=== PATIENT | female | born 1960 | race Caucasian/White ===

== ENCOUNTER 2020-01-20 15:55 | Outpatient (REF) | payer BC, SELFPAY ==
--- NOTE | 2020-01-20 | MM_ITS ---
EXAMINATION: MM SCREENING DIGITAL BREAST TOMOSYNTHESIS, BILATERAL CLINICAL INFORMATION: Screening. Asymptomatic. The lifetime risk of breast cancer based on the Tyrer-Cuzick Model is 9%. COMPARISON: Mammography: 06/26/2017, 06/02/2015 TECHNIQUE: Digital breast tomosynthesis is performed in both the craniocaudal and mediolateral oblique views along with computer-aided detection (CAD). Synthesized 2D images are generated from the tomosynthesis. FINDINGS: There are scattered areas of fibroglandular density (ACR BI-RADS breast composition Category b). There are no significant masses, abnormal calcifications, or other abnormalities. The axilla and skin contours are unremarkable. IMPRESSION: No mammographic evidence of malignancy. ASSESSMENT: BI-RADS 1: Negative RECOMMENDATION: Routine annual mammography screening. This patient's information was entered into a reminder system with a target due date for their next mammogram.
== END 2020-01-20 15:56 | disposition home or self-care (01) ==
LOC: HO.MAMMO 15:55
PROVIDERS: Visit Provider Internal Medicine
DX: Z12.31 Encounter for screening mammogram for malignant neoplasm of breast (principal)
CPT/HCPCS: 77063; 77067

== ENCOUNTER 2020-02-03 16:52 | Outpatient (REF) | payer BC, SELFPAY ==
[2020-02-03 17:57] LABS: COVID-19 Test Negative (Negative)
== END 2020-02-03 16:53 | disposition home or self-care (01) ==
LOC: HO.LAB 16:52
PROVIDERS: Visit Provider Internal Medicine
DX: Z20.828 Contact with and (suspected) exposure to other viral communicable diseases (principal)
CPT/HCPCS: 87635

== ENCOUNTER 2020-02-11 09:17 | Outpatient (REF) | payer BC, SELFPAY | END 2020-02-11 09:18 | disposition home or self-care (01) | LOC: HO.MDS 09:17 | PROVIDERS: PCP Internal Medicine; Visit Provider Hospitalist | DX: J45.909 Unspecified asthma, uncomplicated (principal) | CPT/HCPCS: 96372; J0517 ==

== ENCOUNTER 2020-03-17 08:13 | Outpatient (REF) | payer BC, SELFPAY | END 2020-03-17 08:14 | disposition home or self-care (01) | LOC: HO.LAB 08:13 | PROVIDERS: Visit Provider Internal Medicine | DX: Z20.828 Contact with and (suspected) exposure to other viral communicable diseases (principal) | CPT/HCPCS: C9803; U0003 ==

== ENCOUNTER 2020-04-07 08:39 | Outpatient (REF) | payer BC, SELFPAY | END 2020-04-07 08:40 | disposition home or self-care (01) | LOC: HO.MDS 08:39 | PROVIDERS: Visit Provider Hospitalist | DX: J45.40 Moderate persistent asthma, uncomplicated (principal) | CPT/HCPCS: 96372; J0517 ==

== ENCOUNTER 2020-06-05 09:47 | Outpatient (REF) | payer BC, SELFPAY | END 2020-06-05 09:48 | disposition home or self-care (01) | LOC: HO.MDS 09:47 | PROVIDERS: Visit Provider Hospitalist | DX: J45.50 Severe persistent asthma, uncomplicated (principal) | CPT/HCPCS: 96372; J0517 ==

== ENCOUNTER → 2020-06-16 09:18 | Outpatient (BNVA) | payer BC, SELFPAY | PROVIDERS: PCP Internal Medicine; Visit Provider Hospitalist ==

== ENCOUNTER 2020-07-27 10:33 | Outpatient (REF) | payer BC, SELFPAY | END 2020-07-27 10:34 | disposition home or self-care (01) | LOC: HO.MDS 10:33 | PROVIDERS: Visit Provider Hospitalist | DX: J45.40 Moderate persistent asthma, uncomplicated (principal) | CPT/HCPCS: 96372; J0517 ==

== ENCOUNTER 2020-09-21 07:38 | Outpatient (REF) | payer BC, SELFPAY | END 2020-09-21 07:39 | disposition home or self-care (01) | LOC: HO.MDS 07:38 | PROVIDERS: Visit Provider Hospitalist | DX: J45.40 Moderate persistent asthma, uncomplicated (principal) | CPT/HCPCS: 96372; J0517 ==

== ENCOUNTER 2020-11-16 15:20 | Outpatient (REF) | payer BC, SELFPAY | END 2020-11-16 15:21 | disposition home or self-care (01) | LOC: HO.MDS 15:20 | PROVIDERS: Visit Provider Hospitalist | DX: J45.40 Moderate persistent asthma, uncomplicated (principal) | CPT/HCPCS: 96372; J0517 ==

== ENCOUNTER 2021-01-15 08:37 | Outpatient (REF) | payer BC, SELFPAY | END 2021-01-15 08:38 | disposition home or self-care (01) | LOC: HO.MDS 08:37 | PROVIDERS: Visit Provider Hospitalist | DX: J45.40 Moderate persistent asthma, uncomplicated (principal) | CPT/HCPCS: 96372; J0517 ==

== ENCOUNTER 2021-03-03 09:20 | Emergency (ER) | payer BC, SELFPAY ==
--- NOTE | ~2021-03-03 | XR_ITS ---
EXAMINATION: XR CHEST CLINICAL INFORMATION: Chest pain COMPARISON: Chest radiographs 03/07/2019, 09/21/2015 TECHNIQUE: Portable upright AP view of the chest was obtained. FINDINGS: There is no pneumothorax, pleural reaction, infiltrate, or effusion. The heart is normal in size. The vascularity is normal. The hilar and mediastinal contours are unremarkable. No visible acute bony abnormality. XR/XR chest 1V IMPRESSION: Unremarkable examination.
--- NOTE | 2021-03-03 09:27 | ECG_ITS ---
Test Reason : CP Blood Pressure : / mmHG Vent. Rate : 056 BPM Atrial Rate : 056 BPM P-R Int : 164 ms QRS Dur : 074 ms QT Int : 414 ms P-R-T Axes : 001 041 030 degrees QTc Int : 399 ms Sinus bradycardia Nonspecific ST abnormality Abnormal ECG When compared with ECG of 02-MAR-2015 11:46, Vent. rate has decreased BY 49 BPM T wave inversion no longer evident in Inferior leads T wave inversion no longer evident in Anterolateral leads QT has shortened Referred By: Generic ED Physician Electronically Signed By:HARRIET METZGER
[2021-03-03 09:35] VITALS: BP 153/98; PULSE 49; RESP 18; TEMP 36.6; O2SAT 100; BMI 25.8
[2021-03-03 09:57] LABS: Hematocrit 39.4 % (37.0-47.0); Mean Corpuscular Hemoglobin 31.6 pg (27.0-33.0); Mean Corpuscular Volume 95.9 fL (80.0-98.0); Mean Platelet Volume 10.6 fL (9.4-12.3); Platelet Count 208 X10*3/uL (160-400); Red Blood Count 4.11 X10*6/uL (4.20-5.50); Red Cell Distribution Width 12.1 % (11.0-16.0)
--- NOTE | 2021-03-03 09:57 | ED_ITS ---
HPI - Chest Pain General Chief Complaint: Chest Pain Stated Complaint: chest pain Time Seen by Provider: 03/03/21 09:57 Source: patient Mode of arrival: ambulatory Limitations: no limitations History of Present Illness HPI narrative: Patient with chest pain for 3 days and this morning woke up with right arm pain and jaw pain. Patient is under a lot of stress. Patient has significant family history. Patient has high cholesterol. MD complaint: chest pain Onset (ago): day(s) Timing of current episode: constant Onset: during rest and during exertion Pain location: substernal Pain radiation: right arm and jaw/teeth Severity: mild Quality: tightness Treatment prior to arrival: none Related Data Home Medications Medication Instructions Recorded Confirmed budesonide-formoterol HFA 160 INHALATION 02/24/20 06/16/20 mcg-4.5 mcg/actuation aerosol inhaler Previous Rx's Medication Instructions Recorded montelukast 10 mg tablet 10 mg PO BEDTIME #30 tab 11/30/20 albuterol sulfate 90 mcg/actuation 2 puff PO Q6H PRN #18 g 01/04/21 aerosol inhaler Allergies Allergy/AdvReac Type Severity Reaction Status Date / Time azithromycin Allergy Unknown vomiting Verified 06/16/20 09:45 erythromycin base Allergy Unknown NAUSEA & Verified 06/16/20 09:45 [ERYTHROMYCIN BASE] VOMITING Review of Systems Constitutional: Constitutional: Reports no additional constitutional complaints Eyes: Eyes: Reports no additional eye complaints ENT: Denies dizziness Cardiovascular: Cardiovascular: Reports no additional cardiovascular complaints Respiratory: Respiratory: Reports as per HPI Gastrointestinal: Gastrointestinal: Reports no additional gastrointestinal complaints Genitourinary: Genitourinary: Reports no additional female genitourinary complaints Musculoskeletal: Musculoskeletal: Reports no additional musculoskeletal complaints Integumentary/Breasts: Skin/Breast: Denies rash Neurologic: Reports system reviewed and no additional complaints, except as documented, Denies dizziness and Denies Sensory deficit (Neuro) Psychiatric: Psychiatric: Denies anxiety PMFSH Past Medical History Medical History Allergic rhinitis Arthritis Asthma Employee exposure to blood Hyperlipidemia Surgical History H/O colonoscopy History of appendectomy Family History Family History Father HTN (hypertension) CVD (cardiovascular disease) Mother Heart disease Kidney disease Paternal Grandmother Colon cancer Brother No problems noted. Brother No problems noted. Brother No problems noted. Sister No problems noted. Sister No problems noted. Daughter No problems noted. 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 Alcohol intake: current Alcohol intake frequency: holidays/special occasions only Alcohol type: beer and wine Patient Tobacco Use Status: Tobacco use Unknown Years Smoked: 10 years Use of substances other than those prescribed or required for medical reasons: No Advance Directives: No Advance Directives Information Provided: No Patient : No Physical Exam Vital Signs: Vital Signs: Last Vital Signs Temp 98 F 03/03/21 09:35 Pulse 66 03/03/21 12:46 Resp 15 03/03/21 12:46 BP 144/87 H 03/03/21 12:46 Pulse Ox 97 03/03/21 12:46 BMI result Body Mass Index 25.8 Const: General: healthy appearing Nutritional Appearance: average body habitus Orientation/consciousness: oriented to person and patient oriented x3 Limitations: no limitations HENMT: Head: Yes normal to inspection Ears: external ears normal General nose exam: Normal external nose present Mouth: Normal oral and palatal mucosa present and oropharynx normal Throat: Yes posterior oropharynx normal Eyes: General: appearance normal, both eyes and all related structures Neck: Other: supple Neck: Yes normal visual inspection Chest: Chest palpation & inspection: normal inspection of the chest Resp: Auscultation: clear to auscultation bilaterally Cardio: Jugular venous distension: no JVD Rate: regular rate Rhythm: regular rhythm Heart sounds: S1 normal heart sound present and S2 normal heart sound present GI: Inspection: Yes normal to inspection Palpation (GI): Soft to palpation, nontender and No hepatosplenomegaly present Auscultation: normal bowel sounds : General: Yes no CVA tenderness Back/Spine/Pelvis: Back: no CVA tenderness Skin: General skin exam: no rashes or lesions noted Neuro: General: oriented to person and patient oriented x3 Cranial nerves: Yes CN's II-XII intact bilaterally Motor exam (neuro): 5/5 motor strength present throughout Sensory Exam: No Sensory deficit (Neuro) Extrem: General: Yes normal to inspection Psych: Appearance: grossly normal Course Reevaluation(s) Reevaluation #1: will repeat troponin now Time: 12:20 Reevaluation #2: troponin #2 negative will dc home Time: 13:59 MDM - Chest Pain Lab Data Result diagrams: 03/03/21 10:20 03/03/21 09:49 Labs: Lab Results 03/03/21 03/03/21 03/03/21 Range/Units 09:49 09:49 09:49 WBC 6.0 (4.8-10.8) X10*3/uL RBC 4.11 L (4.20-5.50) X10*6/uL Hgb 13.0 (12.0-16.0) g/dl Hct 39.4 (37.0-47.0) % MCV 95.9 (80.0-98.0) fL MCH 31.6 (27.0-33.0) pg MCHC 33.0 (31.0-35.0) g/dl RDW 12.1 (11.0-16.0) % Plt Count 208 (160-400) X10*3/uL MPV 10.6 (9.4-12.3) fL Immature Gran % (Auto) (0.0-0.4) % Neut % (Auto) (45-73) % Lymph % (Auto) (20-40) % Graham % (Auto) (2-11) % Eos % (Auto) (0-4) % Baso % (Auto) (0-2) % Lymph # (Auto) (1.2-4.9) X10*3/uL Graham # (Auto) (0.1-1.2) X10*3/uL Eos # (Auto) (0.0-0.4) X10*3/uL Baso # (Auto) (0.0-0.2) X10*3/uL Abs Immat Gran (auto) (0.00-0.03) X10*3/uL Absolute Neuts (auto) (2.0-8.3) x10*3/uL Absolute Nucleated RBC 0.000 (0.0-0.012) X10*3/uL Nucleated RBC % (auto) 0.0 (0.0-0.2) /100WBC Sodium 140 (135-145) mmol/L Potassium 4.3 (3.3-5.1) mmol/L Chloride 109 H (96-108) mmol/L Carbon Dioxide 26 (22-29) mmol/L Anion Gap 9 L (12-20) BUN 8 L (9-16) mg/dL Creatinine 0.82 (0.5-1.4) mg/dL Estim Creat Clear Calc 79.0 Estimated GFR > 60 Random Glucose 97 (60-115) mg/dL Calcium 9.4 (8.4-10.2) mg/dL Troponin I High Sens 4.5 (<3.5-17.0) ng/L 03/03/21 03/03/21 Range/Units 10:20 12:47 WBC 6.3 (4.8-10.8) X10*3/uL RBC 4.21 (4.20-5.50) X10*6/uL Hgb 13.3 (12.0-16.0) g/dl Hct 40.5 (37.0-47.0) % MCV 96.2 (80.0-98.0) fL MCH 31.6 (27.0-33.0) pg MCHC 32.8 (31.0-35.0) g/dl RDW 12.1 (11.0-16.0) % Plt Count 201 (160-400) X10*3/uL MPV 10.8 (9.4-12.3) fL Immature Gran % (Auto) 0.3 (0.0-0.4) % Neut % (Auto) 55.0 (45-73) % Lymph % (Auto) 34.4 (20-40) % Graham % (Auto) 10.1 (2-11) % Eos % (Auto) 0.0 (0-4) % Baso % (Auto) 0.2 (0-2) % Lymph # (Auto) 2.2 (1.2-4.9) X10*3/uL Graham # (Auto) 0.6 (0.1-1.2) X10*3/uL Eos # (Auto) 0.0 (0.0-0.4) X10*3/uL Baso # (Auto) 0.0 (0.0-0.2) X10*3/uL Abs Immat Gran (auto) 0.02 (0.00-0.03) X10*3/uL Absolute Neuts (auto) 3.4 (2.0-8.3) x10*3/uL Absolute Nucleated RBC 0.000 (0.0-0.012) X10*3/uL Nucleated RBC % (auto) 0.0 (0.0-0.2) /100WBC Sodium (135-145) mmol/L Potassium (3.3-5.1) mmol/L Chloride (96-108) mmol/L Carbon Dioxide (22-29) mmol/L Anion Gap (12-20) BUN (9-16) mg/dL Creatinine (0.5-1.4) mg/dL Estim Creat Clear Calc Estimated GFR Random Glucose (60-115) mg/dL Calcium (8.4-10.2) mg/dL Troponin I High Sens < 3.5 (<3.5-17.0) ng/L Imaging Data Chest x-ray: Radiologist's impression: FINDINGS: There is no pneumothorax, pleural reaction, infiltrate, or effusion. The heart is normal in size. The vascularity is normal. The hilar and mediastinal contours are unremarkable. No visible acute bony abnormality. XR/XR chest 1V IMPRESSION: Unremarkable examination. ? ECG Data ECG #1: Attestation: I personally reviewed and interpreted this ECG as follows: Interpretation: sinus 60, nonspecific st twave changes inferior laterally Discharge Plan Discharge Clinical Impression: Chest pain Qualifiers: Chest pain type: unspecified Qualified Code(s): R07.9 - Chest pain, unspecified Patient Disposition: Home, Self-Care Instructions: Noncardiac Chest Pain (ED) Prescriptions: No Action montelukast 10 mg tablet 10 mg PO BEDTIME Qty: 30 RF: 3 albuterol sulfate 90 mcg/actuation HFA aerosol inhaler 2 puff PO Q6H PRN (Reason: shortness of breath or wheezing) Qty: 18 RF: 3 budesonide-formoterol 160-4.5 mcg/actuation HFA aerosol inhaler inhalation RF: 0 Referrals: Dorys Noguera MD [Primary Care Provider] - 5 days
[2021-03-03 10:16] VITALS: BP 151/80; PULSE 57; RESP 15; O2SAT 99
[2021-03-03 10:17] LABS: Troponin-I High Sensitivity 4.5 ng/L (<3.5-17.0)
[2021-03-03 10:20] LABS: Anion Gap 9 (12-20); Blood Urea Nitrogen 8 mg/dL (9-16); Calcium 9.4 mg/dL (8.4-10.2); Carbon Dioxide 26 mmol/L (22-29); Chloride 109 mmol/L (96-108); Estimated Glomerular Filt Rate > 60; Glucose Random 97 mg/dL (60-115); Potassium 4.3 mmol/L (3.3-5.1); Sodium 140 mmol/L (135-145)
[2021-03-03 10:23] LABS: MANUAL DIFF FLAG NO
[2021-03-03] MEDS: Nitroglycerin 2 % Oint 1 GM Packet 1 INCH TRANSDERMA (10:23)
[2021-03-03] MEDS: Aspirin Enteric Coated 81 MG TABLET.DR 162 MG PO (10:23)
[2021-03-03 10:25] LABS: Basophils Percent Auto 0.2 % (0-2); Hematocrit 40.5 % (37.0-47.0); Hemoglobin 13.3 g/dl (12.0-16.0); Imm Gran Abs Auto 0.02 X10*3/uL (0.00-0.03); Imm Gran Pct Auto 0.3 % (0.0-0.4); Lymphocytes Absolute Auto 2.2 X10*3/uL (1.2-4.9); Lymphocytes Percent Auto 34.4 % (20-40); Mean Corpuscular HGB Conc 32.8 g/dl (31.0-35.0); Mean Corpuscular Hemoglobin 31.6 pg (27.0-33.0); Mean Corpuscular Volume 96.2 fL (80.0-98.0); Mean Platelet Volume 10.8 fL (9.4-12.3); Monocytes Absolute Auto 0.6 X10*3/uL (0.1-1.2); Monocytes Percent Auto 10.1 % (2-11); Neutrophils Absolute Auto 3.4 x10*3/uL (2.0-8.3); Platelet Count 201 X10*3/uL (160-400); Red Blood Count 4.21 X10*6/uL (4.20-5.50); Red Cell Distribution Width 12.1 % (11.0-16.0); White Blood Count 6.3 X10*3/uL (4.8-10.8)
[2021-03-03 11:01] VITALS: BP 156/87; PULSE 56; RESP 14; O2SAT 98
[2021-03-03 11:43] VITALS: BP 143/87; PULSE 57; RESP 14; O2SAT 95
[2021-03-03 12:46] VITALS: BP 144/87; PULSE 66; RESP 15; O2SAT 97
[2021-03-03] MEDS: Acetaminophen 325 MG TABLET 650 MG PO (12:54)
[2021-03-03 13:29] LABS: Troponin-I High Sensitivity < 3.5 ng/L (<3.5-17.0)
== END 2021-03-03 14:07 | disposition home or self-care (01) ==
PROVIDERS: Emergency Provider Emergency Medicine; PCP Internal Medicine
DX: R07.9 Chest pain, unspecified (principal); M79.601 Pain in right arm; Z79.899 Other long term (current) drug therapy
CPT/HCPCS: 36415; 71045; 80048; 84484; 85025; 85027; 93005; 99284; 99285

== ENCOUNTER 2021-03-15 08:30 | Outpatient (REF) | payer BC, SELFPAY | END 2021-03-15 08:31 | disposition home or self-care (01) | LOC: HO.MDS 08:30 | PROVIDERS: Visit Provider Hospitalist | DX: J45.40 Moderate persistent asthma, uncomplicated (principal) | CPT/HCPCS: 96372; J0517 ==

== ENCOUNTER 2021-05-14 07:41 | Outpatient (REF) | payer BC, SELFPAY | END 2021-05-14 07:42 | disposition home or self-care (01) | LOC: HO.MDS 07:41 | PROVIDERS: Visit Provider Hospitalist | DX: J45.40 Moderate persistent asthma, uncomplicated (principal) | CPT/HCPCS: 96372; J0517 ==

== ENCOUNTER 2021-06-15 07:59 | Outpatient (REF) | payer BC, SELFPAY ==
--- NOTE | 2021-06-15 10:24 | PFT_ITS ---
INDICATION: Asthma. SPIROMETRY: FEV1 to FVC of 77% with an FEV1 of 2.81 L, which is 100% predicted, and FVC of 3.63 L, which is 101% predicted. Post bronchodilators, the patient did have a significant response to bronchodilators noted. In addition to that the FEF 25/75 decreased to 58% predicted consistent with small airways disease and her diagnosis of severe persistent asthma. Maximum voluntary ventilation with 81% predicted. LUNG VOLUMES: Total lung capacity 106% predicted and residual volume 102% predicted. DIFFUSION CAPACITY: DLCO 69% predicted. COMPARISONS: PFTs from 2019. INTERPRETATION: No obstructive nor restrictive ventilatory defects identified. The patient did have a significant response to bronchodilators noted and also evidence of small airway disease consistent with history of hyperreactive airways and asthma. Lung volumes are within normal limits. The patient does have a mild diffusion impairment, therefore need to consider corrected for hemoglobin. When compared to 2019, there is a trend increase in her FVC, trend increase in her FEV1, a trend decrease in the total lung capacity, and a significant decrease in the residual volume in addition to a significant decrease in the diffusion capacity. Clinical correlation warranted. Shar Ma MD MR/MODL / [id number]
== END 2021-06-15 08:00 | disposition home or self-care (01) ==
LOC: HO.RESP 07:59
PROVIDERS: PCP Internal Medicine; Visit Provider Hospitalist
DX: J45.40 Moderate persistent asthma, uncomplicated (principal)
CPT/HCPCS: 94060; 94727; 94729

== ENCOUNTER → 2021-06-23 08:37 | Outpatient (BNVA) | payer BC, SELFPAY | PROVIDERS: PCP Internal Medicine; Visit Provider Hospitalist | DX: J45.40 Moderate persistent asthma, uncomplicated (principal); J30.9 Allergic rhinitis, unspecified; U09.9 Post COVID-19 condition, unspecified; Z87.891 Personal history of nicotine dependence; Z79.899 Other long term (current) drug therapy | CPT/HCPCS: 99212 ==

== ENCOUNTER 2022-02-16 07:26 | Outpatient (REF) | payer BC, SELFPAY ==
--- NOTE | ~2022-02-16 | MM_ITS ---
EXAMINATION: MM SCREENING DIGITAL BREAST TOMOSYNTHESIS, BILATERAL CLINICAL INFORMATION: Screening. Asymptomatic. The lifetime risk of breast cancer based on the Tyrer-Cuzick Model is 9%. COMPARISON: Mammography: 01/20/2020, 06/26/2017, 06/02/2015 TECHNIQUE: Digital breast tomosynthesis is performed in both the craniocaudal and mediolateral oblique views along with computer-aided detection (CAD). Synthesized 2D images are generated from the tomosynthesis. FINDINGS: There are scattered areas of fibroglandular density (ACR BI-RADS breast composition Category b). There are no significant masses, abnormal calcifications, or other abnormalities. Incidental small low right axillary tail node on the right MLO view. The axilla are unremarkable. The skin contours are smooth. There are no significant changes. MM/MM tomosynthesis screening BI IMPRESSION: No mammographic evidence of malignancy. ASSESSMENT: BI-RADS 2: Benign RECOMMENDATION: Routine annual mammography screening. This patient's information was entered into a reminder system with a target due date for their next mammogram.
== END 2022-02-16 07:27 | disposition home or self-care (01) ==
LOC: HO.MAMMO 07:26
PROVIDERS: Visit Provider Internal Medicine
DX: Z12.31 Encounter for screening mammogram for malignant neoplasm of breast (principal)
CPT/HCPCS: 77063; 77067

== ENCOUNTER → 2022-06-21 14:36 | Outpatient (BNVA) | payer BC, SELFPAY | PROVIDERS: PCP Internal Medicine; Visit Provider Hospitalist | DX: Z13.89 Encounter for screening for other disorder (principal) ==

== ENCOUNTER → 2022-07-14 15:08 | Outpatient (REF) | payer BC, SELFPAY | LOC: HO.SL 15:08 | PROVIDERS: PCP Internal Medicine; Visit Provider Hospitalist | DX: G47.33 Obstructive sleep apnea (adult) (pediatric) (principal) | CPT/HCPCS: 95806 ==

== ENCOUNTER 2022-09-05 11:40 | Outpatient (REF) | payer BC, SELFPAY ==
[2022-09-08 00:03] LABS: HPV mRNA E6/E7 Not Detected (Not Detected)
== END 2022-09-05 11:41 | disposition home or self-care (01) ==
LOC: HO.LNP 11:40
PROVIDERS: Visit Provider Internal Medicine
DX: Z12.4 Encounter for screening for malignant neoplasm of cervix (principal); Z11.51 Encounter for screening for human papillomavirus (HPV)
CPT/HCPCS: 87624; 88142

== ENCOUNTER → 2022-09-20 14:51 | Outpatient (BNVA) | payer BC, SELFPAY | PROVIDERS: PCP Internal Medicine; Visit Provider Hospitalist | DX: Z23 Encounter for immunization (principal); G47.33 Obstructive sleep apnea (adult) (pediatric); J45.40 Moderate persistent asthma, uncomplicated; J30.9 Allergic rhinitis, unspecified | CPT/HCPCS: 90471; 90677 ==

== ENCOUNTER → 2022-09-23 08:05 | Outpatient (REF) | payer BC, SELFPAY ==
--- NOTE | ~2022-09-23 | NM_ITS ---
Exercise Myocardial perfusion study Indication: Chest pain to evaluate for myocardial ischemia Technique: The patient was brought in for an exercise perfusion study on 09/23/2022. Patient performed exercise as per Joey protocol and was injected 30 mCi of sestamibi was given intravenously one target HR was achieved. Images were obtained using the SPECT gamma camera interlaced with the gating device. Images were obtained in supine position. Resting perfusion study was performed on 09/26/2002. Patient was administered 30 mCi of sestamibi intravenously at rest. Images were then obtained in supine position. Images obtained with and without CT attenuation. Total DLP 124 mGy-cm. Images were processed with the software and compared side to side in short axis, horizontal long axis and vertical long axis views. Findings: The stress perfusion study showed non attenuated images show small area of mildly reduced uptake in the basal septum of the LV myocardium. Remainder of the LV myocardium is normally perfused. Attenuation corrected images suboptimal due to subdiaphragmatic interference with myocardial uptake. The gated study shows normal LV systolic function with visually estimated LVEF of greater than 60%. LV cavity is normal in size. The gated study shows normal systolic wall thickening and contraction of all segments. There is no transient ischemic dilation. Resting study shows nontender images show normal uptake of radiotracer in all segments of LV myocardium. Gating at rest was suboptimal. The findings are consistent with equivocal for small area of basal septal ischemia. NM/NM cardiolite stress test Impression: 1. Equivocal for basal septal ischemia 2. Gated LVEF is greater than 60% 3. Transient ischemic dilatation not present Stress EKG is positive for ischemia
--- NOTE | 2022-09-23 08:10 | CA_ITS ---
Acquisition Time: 2022-09-23 08:10:27 Total Exercise Time: 00:08:15 Test Indications: CHEST PAIN Medications: ALBUTEROL BREZTRI CETERIZINE CIMETIDINE Protocol: ELLIE Max HR: 141 BPM 87% of Pred: 161 BPM Max BP: 164/080 mmHG Max Work Load: 10.1 METS Exercise stress test with exercise 8 min 15 sec of Ellie protocol, achieving 86% MPHR, 10.1 METs, with mild sob, no chest discomfort, with isolated PACs, with normotensive response to exercise, with nonspecifc ST abnormality at baseine then with EKG changes meeting criteria for ischemia: inferolateral leads. Nuclear images pending. Test reviewed with Dr Hernandez. Referred By: Dorys Noguera Overread By: RAFI ROACH
== END ==
LOC: HO.CARD 08:05
PROVIDERS: PCP Internal Medicine; Visit Provider Internal Medicine
DX: R07.9 Chest pain, unspecified (principal)
CPT/HCPCS: 78452; 93017; A9500

== ENCOUNTER 2022-10-11 14:34 | Outpatient (AMB) | payer BC, SELFPAY ==
--- NOTE | 2022-10-11 14:37 | MHC.OFFVIS ---
Intake Vital Signs 10/11/22 14:38 Height 5 ft 6 in Weight 174 lb 2.643 oz BMI 28.1 BP 144/76 H Blood Pressure Location Lt brachial Position Sitting Pulse 83 Intake Visit Reasons: follow-up abnormal stress test Intake Note: New patient abnormal stress test with ekg c/o chest pain with stress Noc Analyst Required: No Allergies azithromycin Adverse Reaction (Unknown, Verified 09/20/22 14:57) vomiting erythromycin base [ERYTHROMYCIN BASE] Adverse Reaction (Unknown, Verified 09/20/22 14:57) NAUSEA & VOMITING HPI HPI Comments History of Present Illness Details Thank you for referring Marylu in cardiology consultation today for symptoms of exertional chest discomfort and abnormal stress test. 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 She has been noticing that while she is taking care of the horses walking up a hill in her property she would get retrosternal chest tightness associated with shortness of breath. She initially chart to stop to related to her asthma. However recently then she was advised to undergo stress test which was positive for septal ischemia as well as positive electrocardiographically at a moderately high workload. She continues to have similar symptoms and since then has modified her lifestyle and not walking up hill anymore. She has not had any symptoms at rest. She denies any orthopnea, PND, leg edema. No symptoms of palpitations, lightheadedness, syncope. Her last LDL noted in the chart is at 189 mg/dL. She has family history of both her parents having coronary artery bypass grafting in her 70s. Two of her brothers have abdominal aortic aneurysm. One of her sisters, older has type B aortic dissection. She is worried about her symptoms. She has tried to manage his stress proactively. 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 Housing: House Alcohol intake: current Alcohol intake frequency: holidays/special occasions only Alcohol type: beer and wine Patient Tobacco Use Status: Former Tobacco user Tobacco use type: Cigarette Years Smoked: 20 years Current occupational status: employed Cognitive needs: No Hearing needs: No Vision needs: Yes Review of Systems Const Denies chills, Denies daytime sleepiness, Denies fatigue, Denies fever(s), Denies frequent falls, Denies poor appetite, Denies snoring, Denies stops breathing during sleep, Denies weakness, Denies weight gain and Denies weight loss Eyes Denies loss of vision ENT Denies dizziness and Denies hearing loss Card Denies chest pain, Denies claudication, Denies leg edema, Denies lightheadedness, Denies palpitations, Denies dyspnea, Denies dyspnea on exertion and Denies orthopnea Resp Denies cough, Denies excessive phlegm production, Denies dyspnea, Denies dyspnea on exertion, Denies snoring and Denies wheezing GI Denies abdominal pain, Denies hematochezia, Denies change in bowel habits, Denies nausea and Denies vomiting Denies urinary frequency and Denies dysuria Musc Denies arthralgias, Denies muscle weakness, Denies numbness and Denies other (frequent falls) Skin/Breast Denies nail changes and Denies rash Neuro Denies Abnormal speech present, Denies dizziness, Denies frequent falls, Denies loss of vision, Denies memory loss, Denies numbness and Denies weakness Psych Denies depression and Denies memory loss Endo Denies fatigue and Denies palpitations Hudson/Lymph Reports easy bruising and Reports other (anemia) Aller/Immun Denies wheezing Physical Exam Vital Signs: Last Vital Signs Pulse 83 10/11/22 14:38 BP 144/76 H 10/11/22 14:38 BMI result Body Mass Index 28.1 Const General: cooperative, comfortable, no acute distress, well developed, alert, awake, Physically active and well groomed Nutritional Appearance: overweight Orientation/consciousness: patient oriented x3 Limitations: no limitations HEENT Head: Yes normocephalic and Yes atraumatic Neck Neck: Yes trachea midline, Yes supple and Yes no JVD Resp Effort & Inspection: normal respiratory effort Auscultation: clear to auscultation bilaterally Cardio Jugular venous distension: no JVD Palpation: normal PMI Rate: regular rate Rhythm: regular rhythm Heart sounds: S1 normal heart sound present, S2 normal heart sound present, no click, no gallops, no murmurs and no rubs Bruits: no carotid bruits GI Auscultation: normal bowel sounds Skin General skin exam: no rashes or lesions noted Neuro General: patient oriented x3 and no focal motor deficits Speech: No Abnormal speech present Extrem General: Yes no clubbing, cyanosis or edema Office Procedures EKG Details: EKG shows normal sinus rhythm with nonspecific ST changes with QS pattern in lead V1 and V2 [id number], Complete Assessment & Plan Assessment & Plan (1) Exertional chest pain: Code(s): R07.9 - Chest pain, unspecified Plan: Exertional chest pain in this middle-aged woman with significant hyperlipidemia and strong family history with borderline elevated blood pressure in setting of significantly increased personal stress with abnormal stress test. There is likely overlying progressive coronary disease in obstructive CAD. Also possibility includes coronary vaso spasm. I would suggest her to be treated aggressively at this point time and follow aggressively workup with anatomic evaluation for coronary arteries. We discussed invasive coronary angiogram versus coronary CTA. Given that she is able to perform moderately high workload obstructive coronary artery disease is intermediate likelihood. Would suggest a coronary CTA for further evaluation. Meanwhile advised to avoid sudden strenuous exertion. Advised to seek emergency care for symptoms at rest. Stress mitigation strategies to be participated in. Avoid any exercise regimen at this point time till we have anatomic evaluation for coronary arteries. Will advise a low-dose aspirin therapy, high-intensity statin therapy with atorvastatin 40 mg daily and amlodipine 2.5 mg daily to treat both as an antianginal an as well as to treat possible coronary vaso spasm. Management as per the findings of coronary CTA. Will follow up in the clinic after coronary CTA. Thank you for allowing me to partake in her care Coding Level of Care Code New Pt Level 4 (22831) Diagnoses Exertional chest pain R07.9 CPT Codes EKG - CPT: 33389-[id number], Complete ([id number])
[2022-10-11 14:38] VITALS: BP 144/76; PULSE 83; BMI 28.1
== END 2022-10-11 15:17 | disposition home or self-care (01) ==
PROVIDERS: PCP Internal Medicine; Visit Provider Internal Medicine Cardiovascular Disease
DX: R07.9 Chest pain, unspecified (principal)
CPT/HCPCS: 93010; 99204

== ENCOUNTER → 2022-10-11 14:34 | Outpatient (BNVA) | payer BC, SELFPAY | PROVIDERS: PCP Internal Medicine; Visit Provider Internal Medicine Cardiovascular Disease | DX: R07.9 Chest pain, unspecified (principal); R94.39 Abnormal result of other cardiovascular function study; E78.5 Hyperlipidemia, unspecified; F43.9 Reaction to severe stress, unspecified | CPT/HCPCS: 93005 ==

== ENCOUNTER 2022-10-12 09:03 | Outpatient (REF) | payer BC, SELFPAY ==
[2022-10-12 10:21] LABS: MANUAL DIFF FLAG NO
[2022-10-12 10:44] LABS: Basophils Absolute Auto 0.1 X10*3/uL (0.0-0.2); Basophils Percent Auto 1.2 % (0-2); Eosinophils Absolute Auto 0.3 X10*3/uL (0.0-0.4); Eosinophils Percent Auto 4.3 % (0-4); Hematocrit 42.2 % (37.0-47.0); Hemoglobin 13.6 g/dl (12.0-16.0); Imm Gran Abs Auto 0.02 X10*3/uL (0.00-0.03); Imm Gran Pct Auto 0.3 % (0.0-0.4); Lymphocytes Absolute Auto 2.1 X10*3/uL (1.2-4.9); Lymphocytes Percent Auto 35.2 % (20-40); Mean Corpuscular HGB Conc 32.2 g/dl (31.0-35.0); Mean Corpuscular Hemoglobin 30.2 pg (27.0-33.0); Mean Corpuscular Volume 93.6 fL (80.0-98.0); Mean Platelet Volume 11.1 fL (9.4-12.3); Monocytes Absolute Auto 0.5 X10*3/uL (0.1-1.2); Monocytes Percent Auto 8.6 % (2-11); Neutrophils Percent Auto 50.4 % (45-73); Platelet Count 224 X10*3/uL (160-400); Red Blood Count 4.51 X10*6/uL (4.20-5.50); Red Cell Distribution Width 12.2 % (11.0-16.0)
[2022-10-12 11:32] LABS: Alanine Aminotransferase 23 U/L (0-31); Albumin Level 4.4 g/dL (3.5-5.0); Alkaline Phosphatase 62 U/L (39-117); Anion Gap 14 (12-20); Aspartate Amino Transferase 20 U/L (5-31); Blood Urea Nitrogen 15 mg/dL (9-16); Calcium 9.8 mg/dL (8.4-10.2); Carbon Dioxide 22 mmol/L (22-29); Chloride 110 mmol/L (96-108); Cholesterol 221 mg/dL; Estimated Glomerular Filt Rate > 60; Glucose Fasting 93 mg/dL (60-99); HDL Cholesterol 59 mg/dL; LDL Cholesterol Calculated 148 mg/dl; Potassium 4.5 mmol/L (3.3-5.1); Sodium 141 mmol/L (135-145); Total Protein 7.5 g/dL (6.5-8.0); Triglycerides 74 mg/dL
[2022-10-12 11:48] LABS: TSH reflex Free T4 1.89 uIU/mL (0.32-4.0); Vitamin D 25-OH Total 21.8 ng/mL (>30)
[2022-10-14 19:03] LABS: CRP High Sensitivity 4.7 mg/L
== END 2022-10-12 09:04 | disposition home or self-care (01) ==
LOC: HO.LAB 09:03
PROVIDERS: Internal Medicine; Visit Provider Internal Medicine Cardiovascular Disease
DX: Z00.00 Encounter for general adult medical examination without abnormal findings (principal); R07.9 Chest pain, unspecified; E78.5 Hyperlipidemia, unspecified
CPT/HCPCS: 36415; 80053; 80061; 82306; 84443; 85025; 86141

== ENCOUNTER 2022-10-25 08:21 | Outpatient (REF) | payer BC, SELFPAY ==
--- NOTE | ~2022-10-25 | CT_ITS ---
EXAMINATION: CT ANGIOGRAM CHEST CLINICAL INFORMATION: Family history of ischemic heart disease COMPARISON: Chest x-ray March 03, 2021 TECHNIQUE: Multiple axial images were obtained through the chest after the administration of 70 mL of Omnipaque 350 intravenous contrast. Reformatted coronal, sagittal and MIP images were provided for interpretation. This CT examination was performed using dose optimization techniques as appropriate, variously including the following: *Automated exposure control *Adjustment of mA and/or kV according to patient size (this includes techniques or standardized protocols for targeted exams where dose is matched to indication/reason for exam; i.e. extremities or head) *Use of iterative reconstruction technique DLP: 143 mGy-cm FINDINGS: The heart is normal in size. Coronary artery calcifications are present. There is no pericardial effusion. No gross mediastinal or hilar lymphadenopathy. No pathologically enlarged axillary lymph nodes. Normal caliber thoracic aorta. 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 Visualized portions of the proximal bilateral common carotid, subclavian and vertebral arteries are patent. Visualized portions of the upper abdominal aorta are normal in caliber. Takeoff of the celiac and superior mesenteric arteries are widely patent. Central airways are patent. Lungs are well aerated. Mild emphysematous changes are noted. There is mild dependent atelectasis. There is no lobar consolidation. No pleural effusion or pneumothorax. A few tiny pulmonary nodules are noted, for example a 3 mm left upper lobe pulmonary nodule posteriorly (image [id number], series 9). Visualized portions of the upper abdomen are grossly unremarkable. No acute osseous abnormality. CT/CT angio chest aorta IMPRESSION: 1. Normal caliber thoracic aorta. 2. Mild emphysema. 3. A few tiny pulmonary nodules are noted, largest measuring 3 mm. Fleischner guidelines were followed.
[2022-10-25] MEDS: iohexoL 350 MG/ML 100 ML INFUS..BTL IV (08:57)
== END 2022-10-25 08:22 | disposition home or self-care (01) ==
LOC: HO.CT 08:21
PROVIDERS: PCP Internal Medicine; Visit Provider Internal Medicine
DX: J43.9 Emphysema, unspecified (principal); Z82.49 Family history of ischemic heart disease and other diseases of the circulatory system
CPT/HCPCS: 71275; Q9967

== ENCOUNTER 2022-10-26 14:46 | Emergency (ER) | payer BC, SELFPAY ==
--- NOTE | ~2022-10-26 | XR_ITS ---
EXAMINATION: XR ANKLE, LEFT XR FOOT, LEFT CLINICAL INFORMATION: Pain COMPARISON: Left foot radiograph from 08/28/2018 TECHNIQUE: 3 views of left foot 2 views of the left ankle FINDINGS: No acute visible fracture or dislocation. Ankle mortise is symmetric. Hallux valgus of the first metatarsophalangeal joint. Joint spaces and alignment are otherwise maintained. Mild soft tissue prominence along the dorsum of the forefoot. XR/XR foot LT min 3V IMPRESSION: 1. No acute visible fracture or dislocation. 2. Hallux valgus of the first metatarsophalangeal joint. 3. Mild soft tissue prominence along the dorsum of the forefoot.
--- NOTE | ~2022-10-26 | XR_ITS ---
EXAMINATION: XR ANKLE, LEFT XR FOOT, LEFT CLINICAL INFORMATION: Pain COMPARISON: Left foot radiograph from 08/28/2018 TECHNIQUE: 3 views of left foot 2 views of the left ankle FINDINGS: No acute visible fracture or dislocation. Ankle mortise is symmetric. Hallux valgus of the first metatarsophalangeal joint. Joint spaces and alignment are otherwise maintained. Mild soft tissue prominence along the dorsum of the forefoot. XR/XR ankle LT min 3V IMPRESSION: 1. No acute visible fracture or dislocation. 2. Hallux valgus of the first metatarsophalangeal joint. 3. Mild soft tissue prominence along the dorsum of the forefoot.
[2022-10-26 15:05] VITALS: BP 123/70; PULSE 64; RESP 16; TEMP 36.6; O2SAT 99; BMI 26.6
--- NOTE | 2022-10-26 17:20 | ED_ITS ---
HPI - Extremity Injury (Lower) General Chief Complaint: Extremity Injury, Lower Stated Complaint: feet injury Time Seen by Provider: 10/26/22 15:10 Source: patient and RN notes reviewed Mode of arrival: ambulatory Limitations: no limitations History of Present Illness HPI Narrative: This is a 61-year-old female presenting to the emergency department with complaints of left ankle and foot pain after being struck in the leg by a goat. 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 She states she is unsure if she twisted her ankle or foot in the process however and reports that she has had pain and swelling in her left foot and ankle ever since. She has been wearing a boot which has provided her with relief as she reports with walking this is when she has the most pain. She works at [employer] in often times is on her feet for prolonged periods of time and notices at the end of the day her foot and ankle have increase in swelling. Patient has been taking Motrin intermittently for her symptoms which has provided with some. Denies any fevers or chills. No new injury trauma. No other complaints or concerns at this time. MD complaint: ankle injury and foot injury Onset (ago): week(s) Type of Injury: blunt Place: home Severity: moderate Relieving factors: nothing Exacerbating factors: weight bearing, movement and palpation Context: direct blow Associated symptoms: swelling and ambulatory Other symptoms: none Treatments prior to arrival: spinal immobilization Related Data Home Medications Medication Instructions Recorded Confirmed budesonide-formoterol HFA 160 inhalation 02/24/20 10/11/22 mcg-4.5 mcg/actuation aerosol inhaler Previous Rx's Medication Instructions Recorded albuterol sulfate 90 mcg/actuation 2 puff PO Q6H PRN for dyspnea #6.7 03/11/22 aerosol inhaler grams budesonide 160 mcg-glycopyr 9 2 inh inhalation BID 30 days #10.7 06/21/22 mcg-formot 4.8 mcg/actuation HFA grams inhaler (Breztri Aerosphere) cetirizine 10 mg tablet (Zyrtec) 10 mg PO DAILY #30 tabs 06/21/22 montelukast 10 mg tablet 10 mg PO BEDTIME #30 tabs 07/19/22 amlodipine 2.5 mg tablet 2.5 mg PO DAILY #30 tabs 10/11/22 aspirin 81 mg tablet,delayed 81 mg PO DAILY #30 tabs 10/11/22 release (Ecotrin Low Strength) atorvastatin 40 mg tablet 40 mg PO DAILY #30 tabs 10/11/22 Allergies Allergy/AdvReac Type Severity Reaction Status Date / Time azithromycin AdvReac Unknown vomiting Verified 10/26/22 15:09 erythromycin base AdvReac Unknown NAUSEA & Verified 10/26/22 15:09 [ERYTHROMYCIN BASE] VOMITING Review of Systems Review of Systems: Yes all other systems are reviewed and are negative [facility] Past Medical History Medical History Allergic rhinitis Arthritis Asthma Employee exposure to blood Hyperlipidemia 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 Housing: House Alcohol intake: never Patient Tobacco Use Status: Former Tobacco user Tobacco use type: Cigarette Years Smoked: 20 years Smoked in Last 30 Days: No Use of substances other than those prescribed or required for medical reasons: No Advance Directives: No Advance Directives Information Provided: No Current occupational status: employed Cognitive needs: No Hearing needs: No Vision needs: Yes Physical Exam Vital Signs: Vital Signs: Last Vital Signs Temp 97.8 F 10/26/22 15:05 Pulse 60 10/26/22 17:32 Resp 16 10/26/22 17:32 BP 142/86 H 10/26/22 17:32 Pulse Ox 99 10/26/22 17:32 O2 Del Method Room Air 10/26/22 17:32 BMI result Body Mass Index 26.6 Const: Other: General: Awake, alert, and oriented X3. No acute distress. HEENT: Normal inspection CVS: Normal heart rate and rhythm. Pulses normal. Respiratory: No respiratory distress Skin: Warm, dry, no rashes noted to exposed skin. Normal skin color. Normal skin turgor. Extremities: left ankle and foot with edema noted the dorsal aspect. No open wounds, erythema or warmth. Patient has tenderness to palpation along the 3rd metatarsal region. Patient also has tenderness to palpation on the plantar aspect overlying the 3rd meta tarsal. Decreased [place] and plantar flexion secondary to swelling. Able to invert and joseph ankle without pain. No tenderness palpation along the lateral or medial malleolus. DP pulses 2+ Neuro: Oriented X 3. No motor deficit. No sensory deficit. Course Reevaluation(s) Reevaluation #1: x-rays revealing no visible fracture or dislocation. Mild soft tissue prominence along the dorsum of the forefoot otherwise unremarkable. Symptoms consistent with contusion/Sprain. Patient already has walking boot which she has been using which has provided her with some relief. Patient also Advised to follow-up with Orthopedics, states that she has an appointment with them at the end of November. advised ice, rest, take ibuprofen. Given return precaut ions if any new or worsening symptoms occur. Patient understands agrees with plan. Medical Decision Making Medical Decision Making MDM Narrative: 61-year-old female presenting to the emergency department for evaluation of left foot and ankle swelling status post being struck by goat in the left leg 6 weeks ago. Patient with edema noted diffusely throughout ankle. No calf tenderness. no overlying skin changes to suggest cellulitis. Patient has range of motion of the ankle and foot, left concerning for septic arthritis. musculoskeletal injury is likely, will obtain x-rays for further imaging and diagnosis. Differential Diagnosis Differential Diagnoses: The differential diagnosis associated with the presentation includes Left foot contusion, fracture, sprain, strain, gout -unlikely, cellulitis - less likely, septic arthritis -less likely Discharge Plan Discharge Clinical Impression: Acute pain of left foot Patient Disposition: Home, Self-Care Instructions: Foot Sprain (ED) Additional Instructions: Your x-rays did not show any fractures today. Please continue to wear boot for comfort. Also use Abel wrap as needed for comfort and stability. Ice, rest, elevate, and follow-up with orthopedics. Take ibuprofen as needed. If any new or worsening symptoms occur please return for re-evaluation. Prescriptions: No Action albuterol sulfate 90 mcg/actuation HFA aerosol inhaler 2 puff PO Q6H PRN (Reason: for dyspnea) Qty: 6.7 3RF montelukast 10 mg tablet 10 mg PO BEDTIME Qty: 30 11RF budesonide-formoterol 160-4.5 mcg/actuation HFA aerosol inhaler inhalation cetirizine [Zyrtec] 10 mg tablet 10 mg PO DAILY Qty: 30 11RF Breztri Aerosphere 160-9-4.8 mcg/actuation HFA aerosol inhaler 2 inh inhalation BID 30 Days Qty: 10.7 11RF aspirin [Ecotrin Low Strength] 81 mg tablet,delayed release (DR/EC) 81 mg PO DAILY Qty: 30 0RF amlodipine 2.5 mg tablet 2.5 mg PO DAILY Qty: 30 2RF atorvastatin 40 mg tablet 40 mg PO DAILY Qty: 30 2RF Stand Alone Forms: Work/School Release Interventions: ED Discharge Assessment Last Done: 10/26/22 17:54 Discharge Date/Time: 10/26/22 17:55
[2022-10-26 17:32] VITALS: BP 142/86; PULSE 60; RESP 16; O2SAT 99
== END 2022-10-26 17:55 | disposition home or self-care (01) ==
PROVIDERS: Emergency Provider Emergency Medicine; PCP Internal Medicine
DX: M79.672 Pain in left foot (principal)
CPT/HCPCS: 73610; 73630; 99283; 99284

== ENCOUNTER 2022-11-08 11:12 | Outpatient (AMB) | payer BC, SELFPAY ==
[2022-11-08 11:29] VITALS: BP 116/84; PULSE 58; O2SAT 97; BMI 27.6
--- NOTE | 2022-11-08 11:29 | MHC.PC.OV ---
Vital Signs 11/08/22 11:29 Height 5 ft 7 in Weight 176 lb BMI 27.6 BP 116/84 Blood Pressure Location Lt brachial Position Sitting Pulse 58 Pulse Source Pulse Oximeter Pulse Oximetry (%) 97 Oxygen Delivery Method Room Air Intake Visit Reasons: 2m follow up cholesterol Intake Note: Pt is here today for 2 months follow up visit. Allergies azithromycin Adverse Reaction (Unknown, Verified 11/08/22 11:31) vomiting erythromycin base [ERYTHROMYCIN BASE] Adverse Reaction (Unknown, Verified 11/08/22 11:31) NAUSEA & VOMITING Medication List - Last Reconciled 11/08/22 by Dorys Noguera MD albuterol sulfate 90 mcg/actuation 2 puffs PO Q6H PRN amlodipine 5 mg PO BID aspirin (Ecotrin Low Strength) 81 mg PO DAILY atorvastatin 40 mg PO DAILY budesonide-formoterol 160-4.5 mcg/actuation inhalation vngogloosd-rkmwazpe-mujobgsovy 160-9-4.8 mcg/actuation (Breztri Aerosphere) 2 inhalations inhalation BID 30 days cetirizine (Zyrtec) 10 mg PO DAILY montelukast 10 mg PO BEDTIME Tobacco use date assessed: 09/05/22 Dental Screening Dental Screen Date: 11/08/22 Did you have a dental visit in the last 12 months?: Yes Did you have a dental problem in the last 6 months where you did not have access to dental care?: No Was dental information given to patient?: Patient has dentist HPI 2m follow up cholesterol HPI Details Pt presents for f/u HTN and hyperlipid. Pt had equivocal stress test and will have coronary CT angiogram. She follows up with Cardiology. 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 Odin Villa, Mallory Blevins, Yaw Norton and colleagues, with an educational rommel from [employer]. Review of Systems Const All systems reviewed & are unremarkable except as noted in HPI and below Reports no additional complaints Eyes Reports no additional complaints ENT Reports no additional complaints Card Reports no additional complaints Resp Reports no additional complaints GI Reports no additional complaints Reports no additional complaints Musc Reports no additional complaints Physical exam (Primary Care) Vital Signs: Last Vital Signs Pulse 58 11/08/22 11:29 BP 116/84 11/08/22 11:29 Pulse Ox 97 11/08/22 11:29 Oxygen Delivery Method Room Air 11/08/22 11:29 BMI result Body Mass Index 27.6 Tobacco/Smoking Status: Tobacco use Status Tobacco use date assessed 09/05/22 11/08/22 11:34 Patient Tobacco Use Status Former Tobacco user 11/08/22 11:34 Tobacco use type Cigarette 11/08/22 11:34 Thrive Assessment: Date of Thrive Assessment Date Thrive assessed 09/05/22 11/08/22 11:34 Const General: no acute distress HENMT Ears: hearing grossly normal bilaterally Mouth: Normal oral and palatal mucosa present Resp Effort & Inspection: normal respiratory effort Auscultation: clear to auscultation bilaterally Cardio Rhythm: regular rhythm Heart sounds: S1 normal heart sound present and S2 normal heart sound present GI Inspection: Yes normal to inspection Palpation (GI): Soft to palpation Auscultation: normal bowel sounds Assessment and Plan Assessment & Plan (1) Hyperlipidemia: Code(s): E78.5 - Hyperlipidemia, unspecified Plan: Patient was advised to restart Lipitor and return in 1 month for fasting lipid profile (2) Asthma: Comment: F/U Dr. Ma Code(s): J45.909 - Unspecified asthma, uncomplicated Qualifiers: Asthma complication type: uncomplicated Asthma persistence: persistent Asthma severity: moderate Qualified Code(s): J45.40 - Moderate persistent asthma, uncomplicated Plan: Continue current inhalers and follow up with department supervisor (3) CAD (coronary artery disease): Comment: Equivocal nuclear stress test 09/23, will have coronary CT , f/[place] [facility] [place] Code(s): I25.10 - Atherosclerotic heart disease of [place] coronary artery without angina pectoris Plan: f/u with cardiology (4) SAMUEL (obstructive sleep apnea): Comment: mild, no need for Cpap Code(s): G47.33 - Obstructive sleep apnea (adult) (pediatric) Orders: Orders Lipid Panel 1 Month E78.5 - Hyperlipidemia, unspecified, J45.909 - Unspecified asthma, uncomplicated Comprehensive Gates. Panel Fast 1 Month E78.5 - Hyperlipidemia, unspecified, J45.909 - Unspecified asthma, uncomplicated Apolipoprotein B 1 Month E78.5 - Hyperlipidemia, unspecified, J45.909 - Unspecified asthma, uncomplicated CRP High Sensitivity 1 Month E78.5 - Hyperlipidemia, unspecified, J45.909 - Unspecified asthma, uncomplicated Complete Blood Count Auto Diff 1 Month E78.5 - Hyperlipidemia, unspecified, J45.909 - Unspecified asthma, uncomplicated Vitamin D 25-OH Total 1 Month E78.5 - Hyperlipidemia, unspecified, J45.909 - Unspecified asthma, uncomplicated BinaxNOW Covid-19 Ag 09/24/21 Z20.822 - Contact with and (suspected) exposure to COVID-19 Medications: Changed From amlodipine 2.5 mg PO DAILY 30 tabs 2RF R07.9 - Chest pain, unspecified To amlodipine 5 mg PO BID R07.9 - Chest pain, unspecified Discontinued budesonide-formoterol 160-4.5 mcg/actuation Discontinued Reason: Doctor's Order inhalation Coding Level of Care Code Est Pt Level 4 (73566) Diagnoses Hyperlipidemia E78.5 Asthma J45.40 Asthma complication type: uncomplicated Asthma persistence: persistent Asthma severity: moderate CAD (coronary artery disease) I25.10 SAMUEL (obstructive sleep apnea) G47.33
== END 2022-11-08 13:04 | disposition home or self-care (01) ==
PROVIDERS: PCP Internal Medicine; Visit Provider Internal Medicine
DX: E78.5 Hyperlipidemia, unspecified (principal); J45.40 Moderate persistent asthma, uncomplicated; I25.10 Atherosclerotic heart disease of native coronary artery without angina pectoris; G47.33 Obstructive sleep apnea (adult) (pediatric)
CPT/HCPCS: 99214

== ENCOUNTER → 2022-12-28 13:05 | Outpatient (REF) | payer BC, SELFPAY ==
--- NOTE | 2022-12-28 13:08 | CA_ITS ---
Transthoracic Echocardiogram Patient (Last, First, Middle): Saira Harvey A Gender: Female Date of : 1960 Age: 62 Procedure Date: 12/28/2022 Procedure Type: Transthoracic Echocardiogram Location: OP Height: 170.18 cm Weight: 78.47 kg BSA: 1.90 m2 Heart Rate: bpm BP: 122 / 78 mmHg Research Pharmacist: TAMARA Referring MD: Roland Quevedo MD Boiler Room Helper: Roland Quevedo MD Symptoms: I25.10 - Atherosclerotic heart disease of [place] coronary artery without... Study Quality: Adequate with contrast ECG Rhythm: Sinus Conclusions: - Essentially normal study Findings Procedure Information Contrast agent, definity, is being given per protocol without apparent complications. Left Ventricle Normal left ventricular size, thickness, and systolic function. The visually estimated ejection fraction is between 65-70%. Diastolic function is normal for age. Right Ventricle Normal right ventricular cavity size and systolic function. Atria Both atria are normal in size. There is no evidence of interatrial shunt. Aortic Valve Normal aortic valve structure and function. There is no aortic valve stenosis. There is no aortic valve regurgitation. Mitral Valve Normal mitral valve structure and function. There is trace mitral valve regurgitation. There is no mitral valve stenosis. Pulmonic Valve The pulmonic valve is likely normal. Tricuspid Valve Normal tricuspid valve structure. There is trace tricuspid valve regurgitation. The right ventricular systolic pressure is normal. The right ventricular systolic pressure is 25 mmHg. Normal right atrial pressure. There is no evidence of pulmonary hypertension. Great Vessels All visible segments of the aorta are normal in size. The pulmonary artery was not well visualized. Venous The inferior vena cava is normal in size and collapses greater than 50% with inspiration. Pericardium/Pleural There is no evidence of pericardial effusion. Prior Study Comparison No prior study available for comparison. Measurements 2D Linear Measurements IVSd: 0.84 0.6-0.9/0.6-1.0 cm LVIDd: 4.46 3.9-5.3/4.2-5.9 cm LVIDd Index: 2.35 2.4-3.2/2.2-3.1 cm/m2 LVIDs: 2.72 2.0-3.6 cm LVPWd: 0.91 0.7-1.1 cm LA Diam: 3.10 2.7-3.8/3.0-4.0 cm LAIDs Index: 1.63 1.5-2.3 cm/m2 LV Mass: 157.28 67-162/88-224 g LV Mass Index: 82.78 43-95/49-115 g/m2 LVOT Diam: 2.00 3.0+(-)1.3 cm 2D Systolic Function EF 4C: 65.20 >55% EF 2C: 72.10 >55% EF BiP: 68.30 >55% Mitral Valve MV Pk E: 0.87 MV PK A: 0.80 MV Decel Time: 181.00 E/A: 1.10 E'Lateral: 12.50 E'Medial: 8.59 E/E' Med: 10.10 E/E' Lat: 7.00 PHT: 53.00 MVA PHT: 4.15 Decel Whitley: 4.80 Aortic Valve AoV Pk Salo: 1.50 AoV Mn Salo: 0.97 AoV VTI: 0.35 AoV Pk Grad: 9.00 Aov Mn Grad: 4.00 KAIN Cont.VTI: 2.60 LVOT LVOT Pk Salo: 1.31 LVOT Mn Salo: 0.79 LVOT VTI: 0.29 LVOT Pk Grad: 7.00 LVOT Mn Grad: 3.00 LVOT Diam: 2.00 LVOT Area: 3.14 Diastolic Function MV Pk E: 0.87 MV Pk A: 0.80 E/A: 1.10 E'Medial: 8.59 E/E' Med: 10.10 E' Laterial: 12.50 E/E' Lat: 7.00 Right Ventricle TAPSE (mm): 23.50 TVS' Salo: 12.00 Tricuspid Valve TR Pk Salo: 2.32 TR Pk Grad: 22.00 RA Press: 3.00 RVSP: 25.00 Great Vessels Aorta Sinus of Valsalva: 3.00 2.0-3.[address] [place]: 2.41 1.7-3.4 cm Ao Asc: 3.30 2.1-3.4 cm Ao Arch: 3.10 Updated in Other Vendor System with Status of Final Roland Quevedo MD electronically signed on 12/28/2022 3:55:35 PM with status of Final
[2022-12-28 14:45] LABS: MANUAL DIFF FLAG NO
[2022-12-28 15:05] LABS: Basophils Absolute Auto 0.1 X10*3/uL (0.0-0.2); Basophils Percent Auto 0.6 % (0-2); Eosinophils Absolute Auto 0.4 X10*3/uL (0.0-0.4); Eosinophils Percent Auto 4.6 % (0-4); Hematocrit 39.7 % (37.0-47.0); Hemoglobin 12.9 g/dl (12.0-16.0); Imm Gran Abs Auto 0.05 X10*3/uL (0.00-0.03); Imm Gran Pct Auto 0.6 % (0.0-0.4); Lymphocytes Absolute Auto 2.1 X10*3/uL (1.2-4.9); Lymphocytes Percent Auto 26.3 % (20-40); Mean Corpuscular HGB Conc 32.5 g/dl (31.0-35.0); Mean Corpuscular Hemoglobin 30.6 pg (27.0-33.0); Mean Corpuscular Volume 94.3 fL (80.0-98.0); Mean Platelet Volume 10.8 fL (9.4-12.3); Monocytes Absolute Auto 0.6 X10*3/uL (0.1-1.2); Monocytes Percent Auto 7.9 % (2-11); Neutrophils Absolute Auto 4.7 x10*3/uL (2.0-8.3); Platelet Count 234 X10*3/uL (160-400); Red Blood Count 4.21 X10*6/uL (4.20-5.50); Red Cell Distribution Width 12.8 % (11.0-16.0); White Blood Count 7.9 X10*3/uL (4.8-10.8)
[2022-12-28 15:26] LABS: Anion Gap 13 (12-20); Blood Urea Nitrogen 13 mg/dL (9-16); Calcium 9.7 mg/dL (8.4-10.2); Carbon Dioxide 25 mmol/L (22-29); Chloride 110 mmol/L (96-108); Estimated Glomerular Filt Rate > 60; Glucose Random 86 mg/dL (60-115); Potassium 4.1 mmol/L (3.3-5.1); Sodium 144 mmol/L (135-145)
[2022-12-28 15:29] LABS: INTERNATIONAL NORM RATIO 0.9 (0.9-1.1); Prothrombin Time 11.5 SEC (11.1-13.3)
== END ==
LOC: HO.CARD 13:05
PROVIDERS: Visit Provider Internal Medicine Cardiovascular Disease
DX: R07.9 Chest pain, unspecified (principal); R94.39 Abnormal result of other cardiovascular function study; I25.10 Atherosclerotic heart disease of native coronary artery without angina pectoris
CPT/HCPCS: 36415; 80048; 85025; 85610; 93306; Q9957

== ENCOUNTER → 2022-12-28 13:08 | Outpatient (BNV) | payer BC, SELFPAY | PROVIDERS: Visit Provider Internal Medicine Cardiovascular Disease | DX: I25.10 Atherosclerotic heart disease of native coronary artery without angina pectoris (principal) | CPT/HCPCS: 93306 ==

== ENCOUNTER → 2023-01-03 23:59 | Outpatient (BNV) | payer BC, SELFPAY | PROVIDERS: Visit Provider Internal Medicine Cardiovascular Disease | DX: I20.8 Other forms of angina pectoris (principal); R93.1 Abnormal findings on diagnostic imaging of heart and coronary circulation | CPT/HCPCS: 93458; 99152 ==

== ENCOUNTER 2023-01-17 09:15 | Outpatient (AMB) | payer BC, SELFPAY ==
[2023-01-17 09:23] VITALS: BP 130/84; PULSE 63; BMI 28.8
--- NOTE | 2023-01-17 09:23 | MHC.OFFVIS ---
Intake Vital Signs 01/17/23 09:23 Height 5 ft 7 in Weight 183 lb 13.848 oz BMI 28.8 BP 130/84 Blood Pressure Location Lt brachial Position Sitting Pulse 63 Pulse Source Pulse Oximeter Intake Visit Reasons: Follow up post cardiac cath Intake Note: f/u post cardiac cath pt having some leg swelling Chief Deputy Coroner Required: No Allergies azithromycin Adverse Reaction (Unknown, Verified 01/17/23 09:28) vomiting erythromycin base [ERYTHROMYCIN BASE] Adverse Reaction (Unknown, Verified 01/17/23 09:28) NAUSEA & VOMITING Medication List - Last Reconciled 01/17/23 by Bibi Mead, ABRASIVE WATER JET CUTTER OPERATOR-C albuterol sulfate 90 mcg/actuation 2 puffs PO Q6H PRN aspirin (Ecotrin Low Strength) 81 mg PO DAILY [id number]-oxafdvnx-pbptcvpczf 160-9-4.8 mcg/actuation (Breztri Aerosphere) 2 inhalations inhalation BID 30 days cetirizine (Zyrtec) 10 mg PO DAILY montelukast 10 mg PO BEDTIME HPI Follow up post cardiac cath HPI Details Saira is a 62-year-old female with past medical history of asthma, hyperlipidemia, elevated blood pressure readings, exertional chest tightness who has recently undergone cardiac evaluation and ultimately cardiac catheterization and now presents for follow-up. Today she reports that she still gets some chest tightness at times but feels that it may be her asthma. Her asthma is not optimally controlled at present and she plans to further discuss with her farm operations manager. No chest discomfort at rest. No palpitations, presyncope, syncope, PND, orthopnea. She has been experiencing edema on the higher dose amlodipine. She did reduce her dose but has not taken any in the last 2 weeks. She stopped isosorbide due to headache. She took only a few doses of the diuretic that was prescribed and states that she had frequent urination at 1st and then her urination went back to normal. She is not taking the atorvastatin at present. She did get a rash on her lower legs but is unsure if it was related to a medication and if so which one. 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 Housing: House Alcohol intake: never Patient Tobacco Use Status: Former Tobacco user Tobacco use type: Cigarette Years Smoked: 20 years Current occupational status: employed Cognitive needs: No Hearing needs: No Vision needs: Yes Review of Systems Const All systems reviewed & are unremarkable except as noted in HPI and below ENT Denies dizziness Card Denies chest pain, Denies chest pain at rest, Denies chest pain with activity, Denies rapid heart rate, Denies pedal edema, Denies edema, Denies leg edema, Denies lightheadedness, Denies palpitations, Denies dyspnea, Reports dyspnea on exertion and Denies orthopnea Resp Denies cough, Denies dyspnea and Reports dyspnea on exertion GI Denies hematochezia and Denies change in stool character Musc Denies abnormal gait, Denies limited range of motion, Denies muscle cramps, Denies muscle weakness, Denies numbness, Denies radiating pain into limb, Denies stiffness and Denies tingling Neuro Denies abnormal gait, Denies dizziness, Denies numbness and Denies tingling Endo Denies palpitations Physical Exam Vital Signs: Last Vital Signs Pulse 63 01/17/23 09:23 BP 130/84 01/17/23 09:23 BMI result Body Mass Index 28.8 Extrem Other: trace ankle edema Assessment & Plan Assessment & Plan (1) CAD (coronary artery disease): Comment: Equivocal nuclear stress test 09/23, will have coronary CT , f/u [facility] cardiology Code(s): I25.10 - Atherosclerotic heart disease of [place] coronary artery without angina pectoris Plan: Reports of chest tightness with exertion. Also has history of asthma which can contribute. Exercise nuclear stress test done 09/23/2022 with exercise 8 minutes, no angina, nonspecific ST changes, nuclear images equivocal for basal septal ischemia. She then underwent a CTA of the coronary arteries on 11/16/2022 showing moderate stenosis, 50-69% in the proximal segment of the mid LAD and mild stenosis 25-49% throughout the mid LAD. FFR of the proximal LAD 0.83, FFR of the distal LAD 0.75. She then underwent cardiac catheterization on 01/03/2023 showing mid LAD 30-40% stenosis. Elevated left ventricular end-diastolic pressure. Recommended blood pressure control and diuretics. She was given low-dose Lasix which she only took for a few days. Review test results with her in detail. She has nonobstructive coronary artery disease. Her chest tightness is most likely related to asthma or other noncardiac causes. She will be talking with her farm operations manager regarding better asthma treatment. Blood pressure is in normal range today. She tells me she has not been taking her antihypertensives for 2 weeks because of leg swelling. She has been monitoring her blood pressure closely and finds that it is in the normal range. At this time will have her continue aspirin 81 mg daily indefinitely. Restart atorvastatin at 1/2 tablet to see if she develops a rash and if she tolerates then go back to the full 40 mg tablet. LDL goal less than 70. Fasting lipid profile after 2-3 months of consistent statin use. Continue to monitor blood pressure. If normal range then antihypertensives can be held. If blood pressure systolic greater than 130s then she should start back on amlodipine 5 mg daily. She had leg edema with the 10 mg daily dosing. She may discontinue isosorbide which she is not taking due to headache. Signs and symptoms of angina reviewed. Strict risk factor modification discussed. Cardiology follow-up in 6 months, sooner if needed (2) S/P cardiac cath: Comment: 01/03/2023 left main normal, mid LAD 30-40% stenosis, 2nd diagonal ostial 50% stenosis, small vessel, left circumflex normal, RCA minimal irregularities Code(s): Z98.890 - Other specified postprocedural states Plan: Right radial catheterization site well healed. (3) Asthma: Comment: F/U Dr. Ma Code(s): J45.909 - Unspecified asthma, uncomplicated Qualifiers: Asthma severity: moderate Asthma persistence: persistent Asthma complication type: uncomplicated Qualified Code(s): J45.40 - Moderate persistent asthma, uncomplicated (4) Hyperlipidemia: Code(s): E78.5 - Hyperlipidemia, unspecified Qualifiers: Hyperlipidemia type: unspecified Qualified Code(s): E78.5 - Hyperlipidemia, unspecified Plan: She will restart statin therapy Coding Level of Care Code Est Pt Level 3 (22828) Diagnoses CAD (coronary artery disease) I25.10 S/P cardiac cath Z98.890 Moderate persistent asthma without complication J45.40 Asthma severity: moderate Asthma persistence: persistent Asthma complication type: uncomplicated Hyperlipidemia, unspecified hyperlipidemia type E78.5 Hyperlipidemia type: unspecified Time Spent (min) 24
== END 2023-01-17 10:25 | disposition home or self-care (01) ==
PROVIDERS: PCP Internal Medicine; Visit Provider Nurse Practitioner Family
DX: I25.10 Atherosclerotic heart disease of native coronary artery without angina pectoris (principal); Z98.890 Other specified postprocedural states; J45.40 Moderate persistent asthma, uncomplicated; E78.5 Hyperlipidemia, unspecified
CPT/HCPCS: 99213

== ENCOUNTER → 2023-01-17 09:15 | Outpatient (BNVA) | payer BC, SELFPAY | PROVIDERS: PCP Internal Medicine; Visit Provider Nurse Practitioner Family ==

== ENCOUNTER 2023-07-24 09:28 | Outpatient (AMB) | payer BC, SELFPAY ==
[2023-07-24 09:49] VITALS: BP 130/72; PULSE 62; BMI 28.8
--- NOTE | 2023-07-24 09:49 | A.OFFVIS_ITS ---
Vital Signs 07/24/23 09:49 Height 5 ft 7 in Weight 183 lb 13.848 oz BMI 28.8 BP 130/72 Blood Pressure Location Lt brachial Position Sitting Pulse 62 Pulse Source Pulse Oximeter Intake Visit Reasons: 6 mth f/up In Store Demonstrator Required: No Allergies azithromycin Adverse Reaction (Unknown, Verified 07/24/23 09:52) vomiting erythromycin base [ERYTHROMYCIN BASE] Adverse Reaction (Unknown, Verified 07/24/23 09:52) NAUSEA & VOMITING amlodipine Allergy (Mild, Uncoded 07/24/23 09:55) Blister Medication List - Last Reconciled 07/24/23 by Bibi Mead, COMMERCIAL REAL ESTATE ASSOCIATE-C albuterol sulfate 90 mcg/actuation 2 puffs PO Q6H PRN aspirin (Ecotrin Low Strength) 81 mg PO DAILY atorvastatin 40 mg PO DAILY yflkpkvydy-peqwcygb-szzmjthbuc 160-9-4.8 mcg/actuation (Breztri Aerosphere) 2 inhalations inhalation BID 30 days cetirizine (Zyrtec) 10 mg PO DAILY furosemide (Lasix) 20 mg PO DAILY losartan 50 mg PO DAILY montelukast 10 mg PO BEDTIME HPI HPI 6 mth f/up: Details: Saira is a 62-year-old female with past medical history of asthma, hyperlipidemia, elevated blood pressure readings, exertional chest tightness who has recently underwent cardiac catheterization showing nonobstructive coronary disease. She now presents for follow-up. Today she reports that she still gets some chest tightness at times but feels that it may be her asthma. Overall this symptom has improved with time. She has been using her rescue inhaler prior to doing physical activity which has helped. No chest discomfort at rest. No palpitations, presyncope, syncope, PND, orthopnea. She will get mild ankle edema at times. She uses the Lasix every other day. She was noticing some mild lightheadedness and low blood p ressure reading. She has increased her fluid intake recently. Taking meds as directed. She is actively working on weight loss. 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 [facility] Medical History [id number] syndrome Hyperlipidemia Arthritis Allergic rhinitis Asthma Employee exposure to blood Surgical History H/O colonoscopy History of appendectomy Family History Father HTN (hypertension) CVD (cardiovascular disease) Mother Heart disease Kidney disease Paternal Grandmother Colon cancer Brother Mental health disorder Substance use disorder Brother Mental health disorder Substance use disorder Brother Mental health disorder Sister Mental health disorder Sister Mental health disorder Daughter No problems noted. 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: House Alcohol intake: never Patient Tobacco Use Status: Former Tobacco user Tobacco use type: Cigarette Years Smoked: 20 years Current occupational status: employed Cognitive needs: No Hearing needs: No Vision needs: Yes Review of Systems Const All systems reviewed & are unremarkable except as noted in HPI and below ENT Denies dizziness Card Reports chest pain, Denies chest pain at rest, Denies chest pain with activity, Denies rapid heart rate, Denies pedal edema, Denies edema, Denies leg edema, Denies lightheadedness, Denies palpitations, Reports dyspnea, Reports dyspnea on exertion and Denies orthopnea Resp Denies cough, Reports dyspnea and Reports dyspnea on exertion GI Denies hematochezia and Denies change in stool character Musc Denies abnormal gait, Denies limited range of motion, Denies muscle cramps, Denies muscle weakness, Denies numbness, Denies radiating pain into limb, Denies stiffness and Denies tingling Neuro Denies abnormal gait, Denies dizziness, Denies numbness and Denies tingling Endo Denies palpitations Physical Exam Vital Signs: Last Vital Signs Pulse 62 07/24/23 09:49 BP 130/72 07/24/23 09:49 BMI result Body Mass Index 28.8 Const General: cooperative, healthy appearing, comfortable and no acute distress Orientation/consciousness: patient oriented x3 Neck Neck: Yes normal visual inspection and Yes no JVD Resp Effort & Inspection: normal respiratory effort Auscultation: clear to auscultation bilaterally, no rales, no rhonchi and no wheezes Cardio Jugular venous distension: no JVD Rate: regular rate Rhythm: regular rhythm Heart sounds: S1 normal heart sound present, S2 normal heart sound present, no murmurs and no rubs Neuro General: patient oriented x3 Extrem General: Yes normal to inspection and No no pedal edema Psych Appearance: grossly normal Mental Status: mental status grossly normal Speech and movement: Normal speech and movement present Assessment & Plan Assessment & Plan (1) CAD (coronary artery disease): Comment: Equivocal nuclear stress test 09/23, will have coronary CT , f/u [facility] [place] cardiology Code(s): I25.10 - Atherosclerotic heart disease of [place] coronary artery without angina pectoris Category: Medical Plan: Reports of chest tightness with exertion. Also has history of asthma which can contribute. Exercise nuclear stress test done 09/23/2022 with exercise 8 minutes, no angina, nonspecific ST changes, nuclear images equivocal for basal septal ischemia. She then underwent a CTA of the coronary arteries on 11/16/2022 showing moderate stenosis, 50-69% in the proximal segment of the mid LAD and mild stenosis 25-49% throughout the mid LAD. FFR of the proximal LAD 0.83, FFR of the distal LAD 0.75. She then underwent cardiac catheterization on 01/03/2023 showing mid LAD 30-40% stenosis. Elevated left ventricular end-diastolic pressure. Recommended blood pressure control and diuretics. She has been on low dose lasix and at this point is taking it every other day. She uses her albuteral inhaler prior to physical activity. She states her symptom of chest tightness has improved some since last visit. She has nonobstructive coronary artery disease. Reviewed this finding with her again. BP is in normal range today. She has been compliant with her lovastatin. She takes aspirin 81 mg daily and will indefinitely. Compliant with atorvastatin up to 4 days weekly. Will check a fasting lipid and LFT to reassess cholesterol control. [place] LDL goal less than 70. Signs and symptoms of angina reviewed. Strict risk factor modification discussed. Cardiology follow-up in 6 months, sooner if needed (2) S/P cardiac cath: Comment: 01/03/2023 left main normal, mid LAD 30-40% stenosis, 2nd diagonal ostial 50% stenosis, small vessel, left circumflex normal, RCA minimal irregularities Code(s): Z98.890 - Other specified postprocedural states Category: Surgical Plan: As above (3) Asthma: Comment: F/U Dr. Ma Code(s): J45.909 - Unspecified asthma, uncomplicated Category: Medical Qualifiers: Asthma complication type: uncomplicated Asthma persistence: persistent Asthma severity: moderate Qualified Code(s): J45.40 - Moderate persistent asthma, uncomplicated Plan: Better controlled (4) Hyperlipidemia: Code(s): E78.5 - Hyperlipidemia, unspecified Category: Medical Qualifiers: Hyperlipidemia type: unspecified Qualified Code(s): E78.5 - Hyperli pidemia, unspecified Plan: As above Plan Time spent on chart review, documentation, interview and assessment Orders: Orders Comprehensive Clarinda. Panel Fast Today I25.10 - Atherosclerotic heart disease of [place] coronary artery without angina pectoris, Z98.890 - Other specified postprocedural states Lipid Panel Today E78.5 - Hyperlipidemia, unspecified
== END 2023-07-24 10:30 | disposition home or self-care (01) ==
PROVIDERS: PCP Internal Medicine; Visit Provider Nurse Practitioner Family
DX: I25.10 Atherosclerotic heart disease of native coronary artery without angina pectoris (principal); Z98.890 Other specified postprocedural states; J45.40 Moderate persistent asthma, uncomplicated; E78.5 Hyperlipidemia, unspecified
CPT/HCPCS: 99213

== ENCOUNTER → 2023-07-24 09:28 | Outpatient (BNVA) | payer BC, SELFPAY | PROVIDERS: PCP Internal Medicine; Visit Provider Nurse Practitioner Family ==

== ENCOUNTER 2023-08-29 11:34 | Outpatient (AMB) | payer BC, SELFPAY ==
[2023-08-29 11:58] VITALS: BP 110/70; PULSE 70; TEMP 36.2; O2SAT 97; BMI 28.3
--- NOTE | 2023-08-29 11:58 | AM.OFFWIN_ITS ---
Intake Vital Signs 08/29/23 11:58 Height 5 ft 7 in Weight 181 lb BMI 28.3 BP 110/70 Blood Pressure Location Lt brachial Position Sitting Pulse 70 Pulse Source Pulse Oximeter Temp 97.1 F Temp Source Temporal Artery Scan Pulse Oximetry (%) 97 Oxygen Delivery Method Room Air Intake Visit Reasons: EP poison delroy Intake Note: pt is here today for poison delroy started monday Patient Tobacco Use Status: Former Tobacco user Allergies azithromycin Adverse Reaction (Unknown, Verified 08/29/23 12:01) vomiting erythromycin base [ERYTHROMYCIN BASE] Adverse Reaction (Unknown, Verified 08/29/23 12:01) NAUSEA & VOMITING amlodipine Allergy (Mild, Uncoded 07/24/23 09:55) Blister Medication List - Last Reconciled 08/29/23 by NOEL Grullon albuterol sulfate 90 mcg/actuation 2 puffs PO Q6H PRN aspirin (Ecotrin Low Strength) 81 mg PO DAILY atorvastatin 40 mg PO DAILY qrddtwkcrp-dldjhrbe-rnwjyjwxrw 160-9-4.8 mcg/actuation (Breztri Aerosphere) 2 inhalations inhalation BID 30 days cetirizine (Zyrtec) 10 mg PO DAILY doxycycline hyclate 100 mg PO BID furosemide (Lasix) 20 mg PO DAILY losartan 50 mg PO DAILY montelukast 10 mg PO BEDTIME prednisone 10 mg orally take 4 tablets for five days, then take 2 tablets for five days, then take 1 tablet for five days.; see taper instructions Do you need a note to return to daycare/school/sports/work: No HPI HPI Comments History of Present Illness Details Patient is a 62-year-old female in today for a sick visit. Patient reports developing rash on right forearm and right lower extremity 2 days prior to this appointment. She reports small in her lawn and noticing the rash 1-2 days afterwards. This rash is consistent with poison delroy, vesicles forming on the right forearm and right lower extremity. Patient reports utilizing Benadryl and calamine lotion with mild effect. On physical exam vesicles do have clear discharge. Erythema of the right lower extremity. Skin appears taut and shiny. Patient denies recent fever chills. Denies tingling or numbness. [facility] Medical History [id number] syndrome Hyperlipidemia Arthritis Allergic rhinitis Asthma Employee exposure to blood Surgical History H/O colonoscopy History of appendectomy Family History Father HTN (hypertension) CVD (cardiovascular disease) Mother Heart disease Kidney disease Paternal Grandmother Colon cancer Brother Mental health disorder Substance use disorder Brother Mental health disorder Substance use disorder Brother Mental health disorder Sister Mental health disorder Sister Mental health disorder Daughter No problems noted. 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 Alcohol intake: never Patient Tobacco Use Status: Former Tobacco user Tobacco use type: Cigarette Years Smoked: 20 years Current occupational status: employed Cognitive needs: No Hearing needs: No Vision needs: Yes Review of Systems Const All systems reviewed & are unremarkable except as noted in HPI and below Denies chills and Denies fever(s) Card Denies chest pain and Denies dyspnea Resp Denies dyspnea GI Denies diarrhea, Denies nausea and Denies vomiting Musc Denies tingling Skin/Breast Reports rash (Right forearm right lower extremity.) Neuro Denies tingling and Denies paresthesias Physical Exam Vital Signs: Last Vital Signs Temp 97.1 F 08/29/23 11:58 Pulse 70 08/29/23 11:58 BP 110/70 08/29/23 11:58 Pulse Ox 97 08/29/23 11:58 Oxygen Delivery Method Room Air 08/29/23 11:58 BMI result Body Mass Index 28.3 Const Other: Appearance: Alert.? Oriented X3.? No acute distress.? Head: Normocephalic. Respiratory: No respiratory distress.? Skin: Skin warm and dry.? +erythema of right forearm and RLE anterior aspect. +fluid filled blisters, some scabbing. Skin on RLE taut and shiny. Extremities: No lower extremity edema. Neuro: Oriented X 3.? Assessment & Plan Assessment & Plan (1) Poison delroy: Comment: Will give patient prednisone taper. Patient can also continue to use symptom relief with calamine lotion, oat baths. Patient can utilize Benadryl at night. Code(s): L23.7 - Allergic contact dermatitis due to plants, except food (2) Cellulitis: Comment: Likely secondary to poison delroy infection. Patient will be given doxycycline. Patient has been educated on the side effects of these medications. Code(s): L03.90 - Cellulitis, unspecified Qualifiers: Site of cellulitis: extremity Site of cellulitis of extremity: lower extremity Laterality: right Qualified Code(s): L03.115 - Cellulitis of right lower limb Plan: Take your medications as prescribed. If you were prescribed antibiotics today, it is important that you take your medication to their entirety, do not skip any doses, do not finish them early. Follow-up with your primary care provider this week. Return to the emergency department with new or worsening symptoms. Such as feve rs, chills, chest pain, shortness of breath, nausea, vomiting, dizziness, headache, vision changes, lethargy In case of emergency call 911 Plan Patient given work note for 2 days. Medications: New prednisone 10 mg orally take 4 tablets for five days, then take 2 tablets for five days, then take 1 tablet for five days.; see taper instructions 35 tabs 0RF doxycycline hyclate 100 mg PO BID 14 caps 0RF Coding Level of Care Code Est Pt Level 3 (20039) Diagnoses Poison delroy L23.7 Cellulitis of right lower extremity L03.115 Site of cellulitis: extremity Site of cellulitis of extremity: lower extremity Laterality: right Time Spent (min) 22
== END 2023-08-29 13:25 | disposition home or self-care (01) ==
PROVIDERS: PCP Internal Medicine; Visit Provider Nurse Practitioner Primary Care
DX: L23.7 Allergic contact dermatitis due to plants, except food (principal); L03.115 Cellulitis of right lower limb
CPT/HCPCS: 99213

== ENCOUNTER 2023-12-07 12:03 | Outpatient (AMB) | payer BC, SELFPAY ==
[2023-12-07 12:29] VITALS: BP 104/76; PULSE 53; O2SAT 98; BMI 27.8
--- NOTE | 2023-12-07 12:29 | MHC.PC.OV ---
Vital Signs 12/07/23 12:29 Height 5 ft 7 in Weight 177 lb 8 oz BMI 27.8 BP 104/76 Blood Pressure Location Rt brachial Position Sitting Pulse 53 Pulse Source Pulse Oximeter Pulse Oximetry (%) 98 Oxygen Delivery Method Room Air Intake Visit Reasons: PE Intake Note: Pt is here today for PE. Allergies azithromycin Adverse Reaction (Unknown, Verified 12/07/23 12:33) vomiting erythromycin base [ERYTHROMYCIN BASE] Adverse Reaction (Unknown, Verified 12/07/23 12:33) NAUSEA & VOMITING amlodipine Allergy (Mild, Uncoded 12/07/23 12:33) Blister Medication List - Last Reconciled 12/07/23 by Dorys Noguera MD albuterol sulfate 90 mcg/actuation 2 puffs PO Q6H PRN aspirin (Ecotrin Low Strength) 81 mg PO DAILY atorvastatin 40 mg PO DAILY tjwhrmtwbq-gvxlkopu-ohycpulyoy 160-9-4.8 mcg/actuation (Breztri Aerosphere) 2 inhalations inhalation BID 30 days cetirizine (Zyrtec) 10 mg PO DAILY doxycycline hyclate 100 mg PO BID furosemide (Lasix) 20 mg PO DAILY losartan 50 mg PO DAILY montelukast 10 mg PO BEDTIME prednisone 10 mg orally take 4 tablets for five days, then take 2 tablets for five days, then take 1 tablet for five days.; see taper instructions Tobacco use date assessed: 12/07/23 Dental Screening Dental Screen Date: 12/07/23 Did you have a dental visit in the last 12 months?: Yes Did you have a dental problem in the last 6 months where you did not have access to dental care?: No Was dental information given to patient?: Patient has dentist HPI PE HPI Details PATIENT PRESENTS FOR PHYSICAL PFSH Medical History (Updated 12/07/23 @ 12:59 by Dorys Noguera MD) 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 1. Little interest or pleasure in doing things: not at all 2. Feeling down, depressed, or hopeless: not at all 3. Trouble falling or staying asleep, or sleeping too much: not at all 4. Feeling tired or having little energy: not at all 5. Poor appetite or overeating: not at all 6. Feeling bad about yourself - or that you are a failure or have let yourself or your family down: not at all 7. Trouble concentrating on things, such as reading the newspaper or watching television: not at all 8. Moving or speaking so slowly that other people could have noticed. Or the opposite - being so fidgety or restless that you have been moving around a lot more than usual: not at all 9. Thoughts that you would be better off or of hurting yourself in some way: not at all Total score: 0 Depression Screening Interpretation: Negative Depression Screening Done: Yes 29682 - PHQ-9 Billing: Yes Source: Developed by Drs. Odin Villa, Mallory Blevins, Yaw Norton and colleagues, with an educational rommel from [employer]. Thrive Questionnaire Date Thrive assessed: 12/07/23 I am a: Patient What is your living situation today?: I have a steady place to live Within the past 12 months, did the food you bought not last and you didn't have the money to get more?: Never true Within the past 12 months, did you worry whether your food would run out before you got money to buy more?: Never true Do you have trouble paying for medicines?: No Do you have trouble getting transportation to medical appointments?: No Do you have trouble paying your heating and electricity bill?: No Do you have trouble taking care of your child, family member or friend?: No Do you have trouble with day-to-day activities such as bathing, preparing meals, shopping, managing finances, etc.?: No Are you currently unemployed and looking for a job?: No Are you interested in more education?: No Please select the resources that you would like help with: None Currently or been in a relationship where the following occur: No concerns reported THRIVE Score: 0 AUDIT C Alcohol Use Questionnaire (AUDIT-C) 1. How often do you have a drink containing alcohol?: 2-4 times a month 2. How many drinks containing alcohol do you have on a typical day when you are drinking?: 1 or 2 3. How often do you have six or more drinks on one occasion?: Less than monthly Total Score: 3 Score Reviewed/Action Taken: Yes LILIA-7 AMB Questionnaire LILIA-7 Date LILIA - 7 assessed: 12/07/23 Feeling nervous, anxious, or on edge: 0 = Not at all Not being able to stop or control worryin = Not at all Worrying too much about different things: 0 = Not at all Trouble relaxin = Not at all Being so restless that it is hard to sit still: 0 = Not at all Becoming easily annoyed or irritable: 0 = Not at all Feeling afraid as if something awful might happen: 0 = Not at all Total LILIA-7 score (0-4 normal; 5-9 mild; 10-14 moderate; 15-21 severe): 0 Source: Developed by Drs. Odin Villa, Mallory Blevins, Yaw Norton and colleagues, with an educational rommel from [employer]. LILIA-7 Assessment Billing LILIA-7 Assessment Tool: LILIA-7 Assessment 79048 Review of Systems Const All systems reviewed & are unremarkable except as noted in HPI and below Eyes Reports no additional complaints ENT Reports no additional complaints Card Reports no additional complaints Resp Reports no additional complaints GI Reports no additional complaints Reports no additional complaints Physical exam (Primary Care) Vital Signs: Last Vital Signs Pulse 53 12/07/23 12:29 BP 104/76 12/07/23 12:29 Pulse Ox 98 12/07/23 12:29 Oxygen Delivery Method Room Air 12/07/23 12:29 BMI result Body Mass Index 27.8 Tobacco/Smoking Status: Tobacco use Status Tobacco use date assessed 12/07/23 12/07/23 12:32 Patient Tobacco Use Status Former Tobacco user 12/07/23 12:32 Tobacco use type Cigarette 12/07/23 12:32 e-Cigarette/Vaping Use Never Used 12/07/23 12:32 PHQ-9: PHQ-9 Score PHQ-9: Total score 0 12/07/23 12:32 Depression Screening Interpretation: Negative Thrive Assessment: Date of Thrive Assessment Date Thrive assessed 12/07/23 12/07/23 12:32 Currently or been in a relationship where the following occur: No concerns reported Const General: no acute distress HENMT Head: Yes normal to inspection Ears: hearing grossly normal bilaterally Face and sinus: Yes normal facial exam Throat: Yes posterior oropharynx normal Eyes General: appearance normal, both eyes and all related structures Neck Neck: Yes no lymphadenopathy and Yes supple Resp Effort & Inspection: normal respiratory effort Auscultation: clear to auscultation bilaterally Cardio Rhythm: regular rhythm Heart sounds: S1 normal heart sound present and S2 normal heart sound present GI Inspection: Yes normal to inspection Palpation (GI): Soft to palpation Percussion: Yes normal to percussion Auscultation: normal bowel sounds Assessment and Plan Assessment & Plan (1) H/O colonoscopy: Comment: 2013 Dr. RAND Code(s): Z98.890 - Other specified postprocedural states Plan: PATIENT WILL FOLLOW-UP WITH GI FOR REPEAT COLONOSCOPY (2) Annual physical exam: Code(s): Z00.00 - Encounter for general adult medical examination without abnormal findings Plan: Well-balanced diet regular physical activity discussed with the patient. In she will call to schedule mammogram and had a negative Pap smear 2022 (3) S/P cardiac cath: Comment: 01/03/2023 left main normal, mid LAD 30-40% stenosis, 2nd diagonal ostial 50% stenosis, small vessel, left circumflex normal, RCA minimal irregularities Code(s): Z98.890 - Other specified postprocedural states Plan: Continue high dose of statin follow-up with Cardiology (4) Hyperlipidemia: Code(s): E78.5 - Hyperlipidemia, unspecified Qualifiers: Hyperlipidemia type: unspecified Qualified Code(s): E78.5 - Hyperlipidemia, unspecified Plan: Continue atorvastatin return for fasting labs Orders: Orders Lipid Panel Today Z00.00 - Encounter for general adult medical examination without abnormal findings, Z98.890 - Other specified postprocedural states Vitamin D 25-OH Total Today Z00.00 - Encounter for general adult medical examination without abnormal findings, Z98.890 - Other specified postprocedural states Comprehensive Gamaliel. Panel Fast Today Z00.00 - Encounter for general adult medical examination without abnormal findings, Z98.890 - Other specified postprocedural states Complete Blood Count Auto Diff Today Z00.00 - Encounter for general adult medical examination without abnormal findings, Z98.890 - Other specified postprocedural states TSH reflex Free T4 Today Z00.00 - Encounter for general adult medical examination without abnormal findings, Z98.890 - Other specified postprocedural states Medications: New budesonide-formoterol 80-4.5 mcg/actuation (Symbicort) 2 puffs inhalation BID 10.2 grams 0RF baclofen 10 mg PO BEDTIME 20 tabs 0RF Discontinued prednisone Discontinued Reason: Doctor's Order 10 mg orally take 4 tablets for five days, then take 2 tablets for five days, then take 1 tablet for five days.; see taper instructions 35 tabs 0RF doxycycline hyclate Discontinued Reason: Doctor's Order 100 mg PO BID 14 caps 0RF mmhiewcjgb-cfmjochf-vylvdffmth 160-9-4.8 mcg/actuation (Breztri Aerosphere) Discontinued Reason: Doctor's Order 2 inhalations inhalation BID 30 days 10.7 grams 11RF Coding Level of Care Code Est Pt Prev Care 40-64y(54131) Diagnoses H/O colonoscopy Z98.890 Annual physical exam Z00.00 S/P cardiac cath Z98.890 Hyperlipidemia, unspecified hyperlipidemia type E78.5 Hyperlipidemia type: unspecified Additional Codes LILIA-7 Assessment Billing - LILIA-7 Assessment Tool: LILIA-7 Assessment [id number] ([id number])
== END 2023-12-07 13:00 | disposition home or self-care (01) ==
PROVIDERS: PCP Internal Medicine; Visit Provider Internal Medicine
DX: Z00.00 Encounter for general adult medical examination without abnormal findings (principal); Z98.890 Other specified postprocedural states; E78.5 Hyperlipidemia, unspecified
CPT/HCPCS: 99396

== ENCOUNTER 2024-03-05 14:04 | Outpatient (AMB) | payer BC, SELFPAY ==
[2024-03-05 14:07] VITALS: BP 114/62; PULSE 73; O2SAT 98; BMI 28.7
--- NOTE | 2024-03-05 14:07 | A.OFFVIS_ITS ---
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 [employer]: [employer] offered & declined Accompanied by: Self / Same As Patient Allergies azithromycin Adverse Reaction (Unknown, Verified 03/05/24 14:14) vomiting erythromycin base [ERYTHROMYCIN BASE] Adverse Reaction (Unknown, Verified 03/05/24 14:14) NAUSEA & VOMITING amlodipine Allergy (Mild, Uncoded 03/05/24 14:14) Blister Medication List - Last Reconciled 03/05/24 by Koki Ocampo LPN albuterol sulfate 90 mcg/actuation 2 puffs PO Q6H PRN aspirin (Ecotrin Low Strength) 81 mg PO DAILY atorvastatin 40 mg PO DAILY baclofen 10 mg PO BEDTIME budesonide-formoterol 80-4.5 mcg/actuation (Symbicort) 2 puffs inhalation BID cetirizine (Zyrtec) 10 mg PO DAILY furosemide (Lasix) 20 mg PO DAILY losartan 50 mg PO DAILY montelukast 10 mg PO BEDTIME HPI Comments Details: The patient is a 63-year-old woman with a known history of asthma. Apparently back in 2014 after exposure to dust and also mouse droppings the patient had a severe episode of respiratory failure. She was admitted to the ICU briefly. He had significant bronchospasms. During that evaluation she had chest x-rays demonstrating significant peribronchial coughing and also areas of pneumonitis. She did improve after that but never back to her baseline. She continues to use Symbicort once a day in addition to allergy medications. Does have a partially helpful. She is still using her rescue inhaler at least once a day. More recently in the last few weeks she has been waking up in the middle of the night with shortness of breath and she has been using inhaler. She has other exposures. [place] and is exposed to multiple animals and also to hay. She has had allergy testing in the past and did get allergy shots in her 20s. Does did not make any significant difference. She denies any recent use of prednisone for any exacerbations. She did have PFTs done which were reassuring with what appears to be reversible obstruction in small airways disease. This very consistent with her asthma history. In addition to that she had blood work including a CBC with eosinophilia. Based on her moderate persistent asthma the patient may be a good candidate for biologic therapy. 06/16/2020 the patient is here for pulmonary follow-up visit. Overall the patient has been doing very well. She has eosinophilic asthma. She has been tolerating the facet very well. The medication has been life changing medication for her. She has not had any flares and she has not required any prednisone. Patient is doing significantly better on the medication. 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 She needs to continue the Fasenra every 2 months. No plans for any changes this time. The patient also needs to continue using her Singulair. She does state having some hives after given his have the Fasenra primarily on her lips. She is not sure for some the actual injection or something else. If she notices again I did recommend that she starts pretreated with Benadryl prior to the injection. 06/23/2021 the patient is here for a pulmonary follow-up visit. Overall the patient continues to do well on the Fasenra injections that she gets every 2 months. She does continue to use Symbicort on a regular basis. She has felt some chest tightness and some shortness of breath specially after developing COVID in beginning of the year. She has not gotten back to her baseline. However, she has not required any prednisone. She rarely uses a rescue inhaler. 06/21/2022 the patient is here for a pulmonary follow-up visit. The patient is starting to have increasing symptoms. Now that the spring is coming she feels m ore itchiness in more congestion and more chest tightness. Moderate severity. She does use Symbicort with good effect. She is also on Singulair. She needs to go back on taking antihistamines. The biologics were very affecting beneficial although they are very expensive for her. Therefore will try to optimize respiratory therapy without them at this time. The patient also complains of daytime drowsiness. Her Iredell score is elevated 02/24. Her is concerned because she has significant snoring significant apneic episodes. The patient has never had a sleep study in the past. In view of her symptoms in the elevated Iredell score will go ahead and request a home sleep study at this time. Will also optimize respiratory therapy with hopes that we can stay away from biologics this time. 09/20/2022 the patient is here for a pulmonary follow-up visit. The patient overall is doing fair. Continues to have dyspnea on exertion [id number] severity depending on the activity. She does continue the Symbicort. She was not able to get the brush tree inhaler because of the insurance covers at the pharmacy. I will go ahead and send it again to [facility] to hopefully she can get it therapy. In the meantime she is using Symbicort and I will give her a sample of Spiriva that she can start along with to see if this is effective while she waits with the new inhaler. The patient strong hold off on biologics at this time. She also continues to have snoring and daytime drowsiness. Her Iredell score continues to be elevated 01/24. She did have a home sleep study demonstrating mild sleep apnea. Will try additional positional therapy and consists and consider an elastic mandibular advancement device that she can get from her dentist. If this is not effective and she continues with daytime drowsiness then will consider CPAP therapy. 03/05/2024 the patient is here for a pulmonary follow-up visit. The patient has been under the weather for the last month. She traveled back from [place] and she got sick while there. While she was there she did require prednisone. She almost ended up going to the ER in [place]. She flew back to the [place] that afterwards she quickly went to [place]. There breathing got worse again with significant chest tightness coughing chest congestion sinus pressure. She has been using her nebulizer regularly to 4 times a day and had to restart the prednisone while in the [facility]. Now she is off the prednisone and she feels like her symptoms are getting worse again. She is coughing a lot she has a hard time sleeping. She has not use any antibiotics. Will go ahead and treat her with Augmentin. I do not appreciate any significant crackles to suggest pneumonia. However, if the patient does not respond to the Augmentin after 48 hours she can get an x-ray and call me and I can send her some doxycycline to cover her for atypical organisms as well. She is also going to need additional prednisone but I give her a low dose so she can take 20 mg prednisone for 7-10 days and then decrease it to 10 mg for 7-10 days. The patient also has been using her Symbicort. The dose has to be increased to the higher dose Symbicort which I will send her this time as well. Therefore, the patient will continue therapy will follow-up in 2-3 months. If she has any issues not responded to therapy she will call me in the next 48 hours. 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: House Alcohol intake: never Patient Tobacco Use Status: Former Tobacco user Tobacco use type: Cigarette Years Smoked: 20 years e-Cigarette/Vaping Use: Never Used service: No Current occupational status: employed Current occupational exposures/hazards: No Cognitive needs: No Hearing needs: No Vision needs: Yes Review of Systems Const Reports malaise, Denies night sweats and Reports snoring ENT Denies change in voice, Denies lip swelling, Denies mouth pain, Reports nasal congestion, Reports nasal discharge and Denies tongue swelling Card Denies chest pain and Reports dyspnea on exertion Resp Reports chest congestion, Reports cough, Reports dyspnea on exertion, Reports snoring and Reports wheezing GI Denies abdominal pain Musc Denies no additional complaints Neuro Denies Neuro-related abnormal movements Psych Denies no additional complaints Hudson/Lymph Denies easy bleeding and Denies lymphadenopathy Aller/Immun Reports urticaria, Denies lip swelling, Denies tongue swelling and Reports wheezing Physical Exam Vital Signs: Last Vital Signs Pulse 73 03/05/24 14:07 BP 114/62 03/05/24 14:07 Pulse Ox 98 03/05/24 14:07 Oxygen Delivery Method Room Air 03/05/24 14:07 BMI result Body Mass Index 28.7 Const General: alert Neck Neck: Yes normal visual inspection, Yes full ROM and Yes no lymphadenopathy Chest Chest palpation & inspection: normal inspection of the chest Resp Effort & Inspection: prolonged expiratory phase Auscultation: no crackles, no rales, rhonchi, wheezes and diminished lung sounds Cardio Rate: regular rate Rhythm: regular rhythm Heart sounds: S1 normal heart sound present and S2 normal heart sound present GI Palpation (GI): Soft to palpation and nontender Auscultation: normal bowel sounds Skin General skin exam: rashes and/or lesions noted Assessment & Plan Assessment & Plan (1) Asthma: Code(s): J45.909 - Unspecified asthma, uncomplicated Category: Medical Qualifiers: Asthma severity: moderate Asthma persistence: persistent Asthma complication type: with acute exacerbation Qualified Code(s): J45.41 - Moderate persistent asthma with (acute) exacerbation (2) Bronchitis: Code(s): J40 - Bronchitis, not specified as acute or chronic Category: Medical (3) Allergic rhinitis: Code(s): J30.9 - Allergic rhinitis, unspecified Category: Medical Qualifiers: Allergic rhinitis seasonality: unspecified Allergic rhinitis trigger: other Qualified Code(s): J30.89 - Other allergic rhinitis (4) SAMUEL (obstructive sleep apnea): Comment: mild, no need for Cpap Code(s): G47.33 - Obstructive sleep apnea (adult) (pediatric) Category: Medical Plan start Augmentin consider Doxy Low dose prednisone taper cough medicine CXR if no better in 48 hours symbicort continue zyrtec JESSICA as needed positoinal sleep therapy and mandibular device for mild SAMUEL. If no better, consider APAP consider restarting Biologics if no better F/U 6 months Orders: Orders XR chest 2V Today J40 - Bronchitis, not specified as acute or chronic Medications: New amoxicillin-pot clavulanate 875-125 mg 1 tab PO BID 10 days 20 tabs 0RF prednisone PO daily; Take 6 tabs daily x 3 days, then 5 tabs x 3 days, then 4 tabs x 3 days, then 3 tabs x 3 days, then 2 tabs daily x 3 days, then 1 tab x 3 days to complete. 18 days 63 tabs 1RF codeine-guaifenesin 10-100 mg/5 mL 10 mL PO Q6H 10 days PRN 300 mL 0RF cough budesonide-formoterol 160-4.5 mcg/actuation (Symbicort) 2 puffs inhalation BID 30 days 10.2 grams 11RF J44.89 - Other specified chronic obstructive pulmonary disease Discontinued budesonide-formoterol 80-4.5 mcg/actuation (Symbicort) Discontinued Reason: Doctor's Order 2 puffs inhalation BID 10.2 grams 11RF Coding Level of Care Code Est Pt Level 4 (02743) Diagnoses Moderate persistent asthma with acute exacerbation J45.41 Asthma severity: moderate Asthma persistence: persistent Asthma complication type: with acute exacerbation Bronchitis J40 Allergic rhinitis due to other allergic trigger, unspecified seasonality J30.89 Allergic rhinitis seasonality: unspecified Allergic rhinitis trigger: other SAMUEL (obstructive sleep apnea) G47.33 Time Spent (min) 17
== END 2024-03-05 14:41 | disposition home or self-care (01) ==
PROVIDERS: PCP Internal Medicine; Visit Provider Hospitalist
DX: J45.41 Moderate persistent asthma with (acute) exacerbation (principal); J40 Bronchitis, not specified as acute or chronic; J30.89 Other allergic rhinitis; G47.33 Obstructive sleep apnea (adult) (pediatric)
CPT/HCPCS: 99214

== ENCOUNTER 2024-06-13 10:02 | Outpatient (REF) | payer BC, SELFPAY ==
[2024-06-13 11:03] LABS: MANUAL DIFF FLAG NO
[2024-06-13 11:59] LABS: Basophils Absolute Auto 0.1 X10*3/uL (0.0-0.2); Basophils Percent Auto 1.1 % (0-2); Eosinophils Absolute Auto 0.4 X10*3/uL (0.0-0.4); Hematocrit 39.7 % (37.0-47.0); Hemoglobin 13.4 g/dl (12.0-16.0); Imm Gran Abs Auto 0.02 X10*3/uL (0.00-0.03); Imm Gran Pct Auto 0.4 % (0.0-0.4); Lymphocytes Absolute Auto 1.8 X10*3/uL (1.2-4.9); Lymphocytes Percent Auto 31.9 % (20-40); Mean Corpuscular HGB Conc 33.8 g/dl (31.0-35.0); Mean Corpuscular Hemoglobin 31.9 pg (27.0-33.0); Mean Corpuscular Volume 94.5 fL (80.0-98.0); Mean Platelet Volume 11.1 fL (9.4-12.3); Monocytes Absolute Auto 0.6 X10*3/uL (0.1-1.2); Monocytes Percent Auto 10.9 % (2-11); Neutrophils Absolute Auto 2.7 x10*3/uL (2.0-8.3); Neutrophils Percent Auto 48.7 % (45-73); Platelet Count 216 X10*3/uL (160-400); Red Cell Distribution Width 12.3 % (11.0-16.0); White Blood Count 5.6 X10*3/uL (4.8-10.8)
[2024-06-13 12:35] LABS: Anion Gap 12 (12-20); Blood Urea Nitrogen 14 mg/dL (9-16); Calcium 9.7 mg/dL (8.4-10.2); Carbon Dioxide 24 mmol/L (22-29); Chloride 110 mmol/L (96-108); Estimated Glomerular Filt Rate > 60; Glucose Random 94 mg/dL (60-115); Potassium 4.7 mmol/L (3.3-5.1); Sodium 141 mmol/L (135-145)
[2024-06-13 12:36] LABS: Erythrocyte Sedimentation Rate 10 MM/HR (0-20)
[2024-06-15 06:58] LABS: Immunoglobulin E 77 kU/L (<OR=114)
== END 2024-06-13 10:03 | disposition home or self-care (01) ==
LOC: HO.LAB 10:02
PROVIDERS: PCP Internal Medicine; Visit Provider Hospitalist
DX: J45.50 Severe persistent asthma, uncomplicated (principal); J30.89 Other allergic rhinitis; G47.33 Obstructive sleep apnea (adult) (pediatric)
CPT/HCPCS: 36415; 80048; 82785; 85025; 85652

== ENCOUNTER 2024-06-13 10:02 | Outpatient (AMB) | payer BC, SELFPAY ==
--- NOTE | 2024-06-13 10:08 | A.OFFVIS_ITS ---
Vital Signs 06/13/24 10:09 Height 5 ft 7 in Weight 181 lb 14.102 oz BMI 28.5 BP 130/82 Blood Pressure Location Rt brachial Position Sitting Pulse 64 Pulse Source Pulse Oximeter Pulse Oximetry (%) 98 Oxygen Delivery Method Room Air Intake Visit Reasons: Asthma Allergies azithromycin Adverse Reaction (Unknown, Verified 06/13/24 10:12) vomiting erythromycin base [ERYTHROMYCIN BASE] Adverse Reaction (Unknown, Verified 06/13/24 10:12) NAUSEA & VOMITING amlodipine Allergy (Mild, Uncoded 06/13/24 10:12) Blister HPI Comments Details: The patient is a 63-year-old woman with a known history of asthma. Apparently back in 2014 after exposure to dust and also mouse droppings the patient had a severe episode of respiratory failure. She was admitted to the ICU briefly. He had significant bronchospasms. During that evaluation she had chest x-rays demonstrating significant peribronchial coughing and also areas of pneumonitis. She did improve after that but never back to her baseline. She continues to use Symbicort once a day in addition to allergy medications. Does have a partially helpful. She is still using her rescue inhaler at least once a day. More recently in the last few weeks she has been waking up in the middle of the night with shortness of breath and she has been using inhaler. She has other exposures. She lives [place] a farm and is exposed to multiple animals and also to hay. She has had allergy testing in the past and did get allergy shots in her 20s. Does did not make any significant difference. She denies any recent use of prednisone for any exacerbations. She did have PFTs done which were reassuring with what appears to be reversible obstruction in small airways disease. This very consistent with her asthma history. In addition to that she had blood work including a CBC with eosinophilia. Based on her moderate persistent asthma the patient may be a good candidate for biologic therapy. 06/16/2020 the patient is here for pulmonary follow-up visit. Overall the patient has been doing very well. She has eosinophilic asthma. She has been tolerating the facet very well. The medication has been life changing medication for her. She has not had any flares and she has not required any prednisone. Patient is doing significantly better on the medication. 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 She needs to continue the Fasenra every 2 months. No plans for any changes this time. The patient also needs to continue using her Singulair. She does state having some hives after given his have the Fasenra primarily on her lips. She is not sure for some the actual injection or something else. If she notices again I did recommend that she starts pretreated with Benadryl prior to the injection. 06/23/2021 the patient is here for a pulmonary follow-up visit. Overall the patient continues to do well on the Fasenra injections that she gets every 2 months. She does continue to use Symbicort on a regular basis. She has felt some chest tightness and some shortness of breath specially after developing COVID in beginning of the year. She has not gotten back to her baseline. However, she has not required any prednisone. She rarely uses a rescue inhaler. 06/21/2022 the patient is here for a pulmonary follow-up visit. The patient is starting to have increasing symptoms. Now that the spring is coming she feels more itchiness in more congestion and more chest tightness. Moderate severity. She does use Symbicort with good effect. She is also on Singulair. She needs to go back on taking antihistamines. The biologics were very affecting beneficial although they are very expensive for her. Therefore will try to optimize respiratory therapy without them at this time. The patient also complains of daytime drowsiness. Her [place] score is elevated 11/24. Her is concerned because she has significant snoring significant apneic episodes. The patient has never had a sleep study in the past. In view of her symptoms in the elevated [place] score will go ahead and request a home sleep study at this time. Will also optimize respiratory therapy with hopes that we can stay away from biologics this time. 09/20/2022 the patient is here for a pulmonary follow-up visit. The patient overall is doing fair. Continues to have dyspnea on exertion [id number] severity depending on the activity. She does continue the Symbicort. She was not able to get the brush tree inhaler because of the insurance covers at the pharmacy. I will go ahead and send it again to [facility] to hopefully she can get it therapy. In the meantime she is using Symbicort and I will give her a sample of Spiriva that she can start along with to see if this is effective while she waits with the new inhaler. The patient strong hold off on biologics at this time. She also continues to have snoring and daytime drowsiness. Her [place] score continues to be elevated 01/24. She did have a home sleep study demonstrating mild sleep apnea. Will try additional positional therapy and consists and consider an elastic mandibular advancement device that she can get from her dentist. If this is not effective and she continues with daytime drowsiness then will consider CPAP therapy. 03/05/2024 the patient is here for a pulmonary follow-up visit. The patient has been under the weather for the last month. She traveled back from [place] and she got sick while there. While she was there she did require prednisone. She almost ended up going to the ER in [place]. She flew back to the [facility] that afterwards she quickly went to [place]. There breathing got worse again with significant chest tightness coughing chest congestion sinus pressure. She has been using her nebulizer regularly to 4 times a day and had to restart the prednisone while in the [facility]. Now she is off the prednisone and she feels like her symptoms are getting worse again. She is coughing a lot she has a hard time sleeping. She has not use any antibiotics. Will go ahead and treat her with Augmentin. I do not appreciate any significant crackles to suggest pneumonia. However, if the patient does not respond to the Augmentin after 48 hours she can get an x-ray and call me and I can send her some doxycycline to cover her for atypical organisms as well. She is also going to need additional prednisone but I give her a low dose so she can take 20 mg prednisone for 7-10 days and then decrease it to 10 mg for 7-10 days. The patient also has been using her Symbicort. The dose has to be increased to the higher dose Symbicort which I will send her this time as well. Therefore, the patient will continue therapy will follow-up in 2-3 months. If she has any issues not responded to therapy she will call me in the next 48 hours. 06/13/2024 the patient is here for pulmonary follow-up visit. Her symptoms are getting worse. She is having more asthma symptoms on a daily basis. Significant chest tightness and raspiness of her voice. She is coughing throughout the day. She does use her inhaler Symbicort with good effect. She did have Breztri before but it became very expensive in therefore not worth it. The patient responded significantly well to Fasenra but then she stopped it because it became financially expensive. Most likely her symptoms are getting worse now because we are going to the springtime. The patient does have severe allergic asthma. We did repeat her blood work and again she does have significant eosinophilia consistent with eosinophilic asthma. Therefore, Fasenra be very affecting beneficial. The patient is willing to go back on it. She is also going to need some prednisone. I will send some prednisone at this time. She does have a nebulizer she can use it as needed. The patient follow- up in 6 months to 12 depending how she is doing and she can always call for an earlier assessment. 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 Housing: House Alcohol intake: never Patient Tobacco Use Status: Former Tobacco user Tobacco use type: Cigarette Years Smoked: 20 years e-Cigarette/Vaping Use: Never Used service: No Current occupational status: employed Current occupational exposures/hazards: No Cognitive needs: No Hearing needs: No Vision needs: Yes Review of Systems Const Denies night sweats and Reports snoring ENT Denies change in voice, Denies lip swelling, Denies mouth pain, Reports nasal congestion, Reports nasal discharge and Denies tongue swelling Card Denies chest pain and Reports dyspnea on exertion Resp Reports chest congestion, Reports cough, Reports dyspnea on exertion, Reports snoring and Reports wheezing GI Denies abdominal pain Musc Denies no additional complaints Neuro Denies Neuro-related abnormal movements Psych Denies no additional complaints Hudson/Lymph Denies easy bleeding and Denies lymphadenopathy Aller/Immun Reports urticaria, Denies lip swelling, Denies tongue swelling and Reports wheezing Physical Exam Vital Signs: Last Vital Signs Pulse 64 06/13/24 10:09 BP 130/82 06/13/24 10:09 Pulse Ox 98 06/13/24 10:09 Oxygen Delivery Method Room Air 06/13/24 10:09 BMI result Body Mass Index 28.5 Const General: alert Neck Neck: Yes normal visual inspection, Yes full ROM and Yes no lymphadenopathy Chest Chest palpation & inspection: normal inspection of the chest Resp Effort & Inspection: prolonged expiratory phase Auscultation: no crackles, no rales, wheezes and diminished lung sounds Cardio Rate: regular rate Rhythm: regular rhythm Heart sounds: S1 normal heart sound present and S2 normal heart sound present GI Palpation (GI): Soft to palpation and nontender Auscultation: normal bowel sounds Skin General skin exam: rashes and/or lesions noted Assessment & Plan Assessment & Plan (1) Asthma: Code(s): J45.909 - Unspecified asthma, uncomplicated Category: Medical Qualifiers: Asthma complication type: uncomplicated Asthma persistence: persistent Asthma severity: severe Qualified Code(s): J45.50 - Severe persistent asthma, uncomplicated (2) Allergic rhinitis: Code(s): J30.9 - Allergic rhinitis, unspecified Category: Medical Qualifiers: Allergic rhinitis seasonality: unspecified Allergic rhinitis trigger: other Qualified Code(s): J30.89 - Other allergic rhinitis (3) SAMUEL (obstructive sleep apnea): Comment: mild, no need for Cpap Code(s): G47.33 - Obstructive sleep apnea (adult) (pediatric) Category: Medical Plan restart fasenra symbicort consider LAMA continue zyrtec JESSICA as needed positoinal sleep therapy and mandibular device for mild SAMUEL. If no better, consider APAP bloodwork F/U 6-12 months Orders: Orders Complete Blood Count Auto Diff Today J45.41 - Moderate persistent asthma with (acute) exacerbation Immunoglobulin E Today J45.41 - Moderate persistent asthma with (acute) exacerbation Basic Metabolic Panel Today J45.41 - Moderate persistent asthma with (acute) exacerbation Erythrocyte Sedimentation Rate Today J45.41 - Moderate persistent asthma with (acute) exacerbation Coding Level of Care Code Est Pt Level 4 (76058) Diagnoses Severe persistent asthma without complication J45.50 Asthma complication type: uncomplicated Asthma persistence: persistent Asthma severity: severe Allergic rhinitis due to other allergic trigger, unspecified seasonality J30.89 Allergic rhinitis seasonality: unspecified Allergic rhinitis trigger: other SAMUEL (obstructive sleep apnea) G47.33 Time Spent (min) 16
[2024-06-13 10:09] VITALS: BP 130/82; PULSE 64; O2SAT 98; BMI 28.5
--- OUTSIDE RECORDS SUMMARY | 2024-06-13 12:24 | XMS_ITS | Patient Health Record ---
Author Organization [facility] Address [address] [place] [address] Care Team Providers Care Dredge Captain Name Role Phone Dorys Noguera MD Primary Care Provider Eliud Diaz Unavailable [phone] Allergies Allergen (clinical drug ingredient) Drug/Non Drug Allergy documented on EMR Reaction Allergy Type Onset Date Status erythromycin Erythromycin vomiting Drug Allergy A ctive Reason For Referral No Information Medications Medication SIG (Take, Route, Frequency, Duration) Notes Start Date End Date Status Albuterol Active amLODIPine Besylate 5 MG 1 tablet Orally Once a day Active Atorvastatin Calcium Active Physical Therapy . . . 2-3x/week for 3- 4 weeks 09/03/2014 Not-Taking Singulair 10 MG 1 tablet in the even ing Orally Once a day Active Symbicort 160-4.5 MCG/ACT 2 puffs Inhala tion Five times a day Active Ventolin HFA 108 (90 Base) MCG/ACT 2 puffs as needed Inhalation every 4 hrs Not-Takin g Aspirin 81 MG 1 tablet Orally Once a day Active Meloxicam 15 MG 1 tablet Orally Once a day for 30 day(s) 07/30/2014 Not-Taking Walking Boot/Pneumatic As directed Wear Daily for Until further notice Not-Taking Social History Tobacco Use: Social History Observation Description Date Details (start date - stop date) Former Smoker NA - NA Tobacco Use/Smoking Question Answer Notes Are you a: former smoker Additional Findings: Tobacco Non-User Current no n-smoker Alcohol Screen Question Answer Notes Did you have a drink contain ing alcohol in the past year? Yes How often did you have a dri nk containing alcohol in the past year? 2 to 3 times a week (3 points) Points 3 Interpretation Positive Problems Problem Type SNOMED Code ICD Code Onset Dates Problem Status W/U Status Risk Notes Problem Acquired hallux valgus (70159449) Hallux valgus (acquired), left foot (M20.12) Active confirmed Problem Acquired hallux valgus (51119333) Hallux valgus (acquired), right foot (M20.11) Active confirmed Problem 727794151 Stress fracture of foot with delayed healing, unspecified laterality, subsequent encounter (M84.376G) Active confirmed Plan Of Treatment Pending Test Test Name Order Date X ray : Foot, left 2V 07/30/2014 X ray : Foot, right 2V 07/30/2014 X ray : Foot, left 3V 11/12/2018 X ray : Foot, right 3V 11/12/2018 Insurance Providers Payer Name Payer Address Payer Phone Subscriber Number Group Number Insured Name Patient Relationship to Insured Coverage Start Date Coverage End Date [facility] [address] [place] [address] [phone] [id number] Saira Harvey Self - patient is the insured Medical (General) History Medical History History ICD Code asthma Measles Mumps Chicken pox Surgical History Surgery Date(Month/Year) finger surgery 1976 section 1997 ruptured ectopic x 2 1999 appendectomy 2000
== END 2024-06-13 10:36 | disposition home or self-care (01) ==
LOC: HO.HPS 10:03
PROVIDERS: PCP Internal Medicine; Visit Provider Hospitalist
DX: J45.50 Severe persistent asthma, uncomplicated (principal); J30.89 Other allergic rhinitis; G47.33 Obstructive sleep apnea (adult) (pediatric)
CPT/HCPCS: 99214

== ENCOUNTER 2025-01-04 08:09 | Outpatient (REF) | payer BC, SELFPAY | END 2025-01-04 08:10 | disposition home or self-care (01) | LOC: HO.MAMMO 08:09 | PROVIDERS: PCP Internal Medicine; Visit Provider Internal Medicine | DX: Z12.31 Encounter for screening mammogram for malignant neoplasm of breast (principal) | CPT/HCPCS: 77063; 77067 ==

== ENCOUNTER → 2025-01-04 08:15 | Outpatient (BNV) | payer BC, SELFPAY | PROVIDERS: PCP Internal Medicine; Visit Provider Internal Medicine | DX: Z12.31 Encounter for screening mammogram for malignant neoplasm of breast (principal) | CPT/HCPCS: 77063; 77067 ==

== ENCOUNTER 2025-01-16 11:23 | Outpatient (REF) | payer BC, SELFPAY ==
--- NOTE | ~2025-01-16 | XR_ITS ---
EXAMINATION: XR LUMBOSACRAL SPINE CLINICAL INFORMATION: M54.50 - Low back pain, unspecified COMPARISON: X-ray 820 06/20/2017 TECHNIQUE: Three views of the lumbosacral spine. FINDINGS: 5 lumbar type vertebral bodies. Minimal anterolisthesis of L4 on L5, similar to previous. Vertebral body heights are maintained. No evidence of acute fracture. Mild L5-S1 disc degeneration. SI joints are symmetric. No suspicious soft tissue calcification. XR/XR lumbar spine 2-3V IMPRESSION: Mild L5-S1 disc degeneration. Electronically signed by: Jacek Lawler MD 01/16/2025 01:28 PM EDT
== END 2025-01-16 11:24 | disposition home or self-care (01) ==
LOC: HO.HMGCX 11:23
PROVIDERS: PCP Internal Medicine; Visit Provider Nurse Practitioner Family
DX: M79.604 Pain in right leg (principal); M54.50 Low back pain, unspecified; Z79.899 Other long term (current) drug therapy
CPT/HCPCS: 72100

== ENCOUNTER 2025-01-16 11:23 | Outpatient (AMB) | payer BC, SELFPAY ==
[2025-01-16 12:04] VITALS: BP 106/80; PULSE 62; TEMP 36.7; O2SAT 99; BMI 28.5
--- NOTE | 2025-01-16 12:04 | AM.OFFWIN_ITS ---
Intake Vital Signs 01/16/25 12:04 Height 5 ft 7 in Weight 182 lb BMI 28.5 BP 106/80 Blood Pressure Location Rt brachial Position Sitting Pulse 62 Pulse Source Pulse Oximeter Temp 98.1 F Temp Source Oral Pulse Oximetry (%) 99 Oxygen Delivery Method Room Air Intake Visit Reasons: ep back and hip pain Intake Note: pt presents with right back pain radiating down right leg Patient Tobacco Use Status: Former Tobacco user Allergies amlodipine Allergy (Mild, Verified 01/16/25 12:06) Blister azithromycin Adverse Reaction (Unknown, Verified 01/16/25 12:06) vomiting erythromycin base (ERYTHROMYCIN BASE) Adverse Reaction (Unknown, Verified 01/16/25 12:06) NAUSEA & VOMITING Medication List - Last Reconciled 01/16/25 by Yoana Riley NP albuterol sulfate 90 mcg/actuation 2 puffs PO Q6H PRN benralizumab (Fasenra Pen) Loading dose: 30mg SC [id number] x 3, then 30mg subcutaneously every 8 weeks 12 months budesonide-formoterol 160-4.5 mcg/actuation (Symbicort) 2 puffs inhalation BID 30 days cetirizine (Zyrtec) 10 mg PO DAILY furosemide (Lasix) 20 mg PO DAILY PRN losartan 50 mg PO DAILY montelukast 10 mg PO BEDTIME Do you need a note to return to daycare/school/sports/work: No HPI HPI Comments History of Present Illness Details 64 y/o Female Patient who presents to [facility] in clinic with c/o Chronic lower back pain with radiation down to right lower Extremity for over a year now. Denies any injury or trauma to her back. 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 She has tried Chiropractor, Physical therapy, Gabapentin, Lido patches, Voltaren Gel, NSAIDs and Acetaminophen with no relief. Denies numbness or tingling. Denies bladder or Bowel symptoms. [facility] Medical History (Updated 01/16/25 @ 12:45 by Yoana Riley NP) Low back pain radiating to lower extremity [id number] syndrome Hyperlipidemia Arthritis Allergic rhinitis Asthma Surgical History (Updated 12/07/23 @ 12:47 by Dorys Noguera MD) H/O colonoscopy History of appendectomy Family History Father HTN (hypertension) CVD (cardiovascular disease) Mother Heart disease Kidney disease Paternal Grandmother Colon cancer Brother Mental health disorder Substance use disorder Brother Mental health disorder Substance use disorder Brother Mental health disorder Sister Mental health disorder Sister Mental health disorder Daughter No problems noted. 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 Housing: House Alcohol intake: never Patient Tobacco Use Status: Former Tobacco user Tobacco use type: Cigarette Years Smoked: 20 years e-Cigarette/Vaping Use: Never Used service: No Current occupational status: employed Current occupational exposures/hazards: No Cognitive needs: No Hearing needs: No Vision needs: Yes Review of Systems Const All systems reviewed & are unremarkable except as noted in HPI and below Physical Exam Vital Signs: Last Vital Signs Temp 98.1 F 01/16/25 12:04 Pulse 62 01/16/25 12:04 BP 106/80 01/16/25 12:04 Pulse Ox 99 01/16/25 12:04 Oxygen Delivery Method Room Air 01/16/25 12:04 BMI result Body Mass Index 28.5 Const General: no acute distress Nutritional Appearance: overweight Orientation/consciousness: patient oriented x3 Back/Spine/Pelvis Back: back tenderness Thoracic/Lumbar Spine: paraspinal muscle tenderness, thoraco-lumbar spasm and lumbar spinal tenderness Neuro General: patient oriented x3, gait normal and moves all extremities Psych Speech and movement: Normal speech and movement present Assessment & Plan Assessment & Plan (1) Low back pain radiating to lower extremity: Code(s): M54.50 - Low back pain, unspecified; M79.606 - Pain in leg, unspecified Plan: Ordered Lumbar X-rays. Ordered Prednisone, Flexeril and Meloxicam. F/U with PCP. Orders: Orders XR lumbar spine 2-3V Today Yoana Riley NP M54.50 - Low back pain, unspecified, M79.606 - Pain in leg, unspecified Medications: New prednisone 20 mg PO DAILY 10 tabs 0RF Yoana Riley NP M54.50 - Low back pain, unspecified, M79.606 - Pain in leg, unspecified cyclobenzaprine 10 mg PO BEDTIME 14 tabs 0RF Yoana Riley NP M54.50 - Low back pain, unspecified, M79.606 - Pain in leg, unspecified meloxicam 15 mg PO DAILY 20 tabs 0RF Yoana Riley NP M54.50 - Low back pain, unspecified, M79.606 - Pain in leg, unspecified Changed From furosemide (Lasix) 20 mg PO DAILY 30 tabs 5RF To furosemide (Lasix) 20 mg PO DAILY PRN Ryan Costello MD Discontinued codeine-guaifenesin 10-100 mg/5 mL Discontinued Reason: Patient Completed Course 10 mL PO Q6H 10 days PRN 300 mL 0RF cough Coding Level of Care Code Est Pt Level 4 (15025) Diagnoses Low back pain radiating to lower extremity M54.50; M79.606 Time Spent (min) 20
--- OUTSIDE RECORDS SUMMARY | 2025-01-16 14:39 | XMS_ITS | Patient Health Record ---
Author Organization [facility] Address [address] [place] [address] Care Team Providers Care Urology Surgeon Name Role Phone Dorys Noguera MD Primary Care Provider Chastity Cabezas Jr, Maury Sampson [phone] Allergies Allergen (clinical drug ingredient) Drug/Non Drug Allergy documented on EMR Reaction Allergy Type Onset Date Status erythromycin Erythromycin Unknown Drug Allergy A ctive Reason For Referral No Information Medications Medication SIG (Take, Route, Fr equency, Duration) Notes Start Date End Date Status OsmoPrep 1.102-0.398 GM 32 tablets Orall y over two days as directed; Duration: 2 day(s) 02/07/2014 Active Symbicort Active Albuterol Active Singulair 10 MG 1 tablet in the even ing Orally Once a day Active Problems Problem Type SNOMED Code ICD Code Onset Dates Problem Status W/U Status Risk Notes Problem Colon cancer screening (594512971) Colon cancer screening (V76.51) Active confirmed Plan Of Treatment Future Test Test Name Order Date COLONOSCOPY 02/07/2014 Next Appt Details Provider Name:Maury little Jr, 03/31/2025 10:20:00 AM, [address], [address], [place], [address], Insurance Providers Payer Name Payer Address Payer Phone Subscriber Number Group Number Insured Name Patient Relationship to Insured Coverage Start Date Coverage End Date [employer] [address] [address] [place] [address] [id number] PREETI HARDING Self - patient is the insured Medical (General) History Medical History History ICD Code Denies [place],DM,CVA,Lung disease,renal dise ase asthma Surgical History Surgery Date(Month/Year) appendectomy 1999 cholecystectomy 1997 etopic X 2 2000 multi envitro [id number] finger surgery-left middle 1976 laparoscopic surgery for infertility 199 2
--- OUTSIDE RECORDS SUMMARY | 2025-01-16 14:39 | XMS_ITS | Patient Health Record ---
Author Organization [facility] Address [address] [place] [address] Care Team Providers Care Auto Painter Helper Name Role Phone Dorys Noguera MD Primary Care Provider UnavailEliud Reyes Unavailable [phone] Allergies Allergen (clinical drug ingredient) Drug/Non Drug Allergy documented on EMR Reaction Allergy Type Onset Date Status erythromycin Erythromycin vomiting Drug Allergy A ctive Reason For Referral No Information Medications Medication SIG (Take, Route, Frequency, Duration) Notes Start Date End Date Status Albuterol Active amLODIPine Besylate 5 MG 1 tablet Orally Once a day Active Atorvastatin Calcium Active Physical Therapy . . . 2-3x/week; Duration: 3-4 weeks 09/03/2014 Not-Taking Singulair 10 MG 1 tablet in the even ing Orally Once a day Active Symbicort 160-4.5 MCG/ACT 2 puffs Inhala tion Five times a day Active Ventolin HFA 108 (90 Base) MCG/ACT 2 puffs as needed Inhalation every 4 hrs Not-Takin g Aspirin 81 MG 1 tablet Orally Once a day Active Meloxicam 15 MG 1 tablet Orally Once a day; Duration: 30 day(s) 07/30/2014 Not-Taking Walking Boot/Pneumatic As directed Wear Daily; Duration: Until further notice Not-Taking Social History Tobacco [...] Status Risk Notes Problem Acquired hallux valgus (98897137) Hallux valgus (acquired), left foot (M20.12) Active confirmed Problem Acquired hallux valgus (56826520) Hallux valgus (acquired), right foot (M20.11) Active confirmed Problem Stress fracture of foot with delayed healing, [...] End Date [facility] [address] [place] [address] [phone] [id number] Saira Harvey Self - patient is the insured Medical (General) History Medical History History ICD Code asthma Measles Mumps Chicken pox Surgical History Surgery Date(Month/Year) finger surgery 1976 section 1997 ruptured ectopic x 2 1999 appendectomy 2001
== END 2025-01-16 13:08 | disposition home or self-care (01) ==
PROVIDERS: PCP Internal Medicine; Visit Provider Nurse Practitioner Family
DX: M54.50 Low back pain, unspecified (principal); M79.606 Pain in leg, unspecified

== ENCOUNTER → 2025-01-16 13:09 | Outpatient (BNV) | payer BC, SELFPAY | PROVIDERS: PCP Internal Medicine; Visit Provider Radiology Diagnostic Ultrasound | DX: M51.360 Other intervertebral disc degeneration, lumbar region with discogenic back pain only (principal) | CPT/HCPCS: 72100 ==